=== PATIENT | male | born 1955 | race Caucasian/White ===

== ENCOUNTER 2019-02-12 09:42 | Day surgery (SDC) | payer OTHER ==
[2019-02-10 10:41] VITALS: BMI 31.5
--- NOTE | 2019-02-12 08:32 | P.GSHP ---
History of Present Illness H&P Date: 02/12/19 CHIEF COMPLAINT: Colon screen HISTORY OF PRESENT ILLNESS: The patient is a 63-year-old male who presents for colon screen. Lower endoscopy was offered for further evaluation and management. PAST MEDICAL HISTORY: Please see list. PAST SURGICAL HISTORY: Please see list. MEDICATIONS: Please see list. ALLERGIES: Please see list. SOCIAL HISTORY: No illicit drug use FAMILY HISTORY: No reports of Crohn disease or ulcerative colitis. REVIEW OF ORGAN SYSTEMS: CONSTITUTIONAL: No reports of fevers or chills. PHYSICAL EXAM: VITAL SIGNS: Stable GENERAL: Well-developed pleasant in no acute distress. HEENT: No scleral icterus. Extraocular movements grossly intact. Moist buccal mucosa. NECK: Supple without lymphadenopathy. CHEST: Unlabored respirations. Equal bilateral excursions. CARDIOVASCULAR: Regular rate and rhythm. Distal 2+ pulses. ABDOMEN: Soft, nontender, nondistended. MUSCULOSKELETAL: No clubbing, cyanosis, or edema. ASSESSMENT: 1. Colon screen. PLAN: 1. Recommend proceeding with a lower endoscopy Past Medical History Past Medical History: Coronary Artery Disease (CAD), Cancer, Hyperlipidemia, Hypertension, Thyroid Disorder Additional Past Medical History / Comment(s): HX OF LYMPHOMA 1984, radiation tx 1984, STATES BOWEL OBSTRUCTION X3, tinnitus History of Any Multi-Drug Resistant Organisms: None Reported Past Surgical History: Bowel Resection, Heart Catheterization With Stent Additional Past Surgical History / Comment(s): LEFT AXILLARY LYMPH NODES REMOVED, SPLEENECTOMY, PARTIAL LIVER REMOVAL, Past Anesthesia/Blood Transfusion Reactions: No Reported Reaction Date of Last Stent Placement:: 2014 Past Psychological History: No Psychological Hx Reported Smoking Status: Former smoker Past Alcohol Use History: Occasional Additional Past Alcohol Use History / Comment(s): quit smoking 1979, smoked about 10 yrs 1ppd Past Drug Use History: Marijuana Additional Drug Use History / Comment(s): instructed to hold 24 hrs prior to procedure - Past Family History Mother Family Medical History: Cancer Medications and Allergies Home Medications Medication Instructions Recorded Confirmed Type Aspirin 81 mg PO DAILY 04/30/14 02/10/19 History Multivitamins, Thera [Multivitamin] 1 tab PO DAILY 04/30/14 02/10/19 History Atorvastatin [Lipitor] 80 mg PO DAILY 02/10/19 02/10/19 History Cholecalciferol (Vitamin D3) 2,000 unit PO DAILY 02/10/19 02/10/19 History [Vitamin D3] Levothyroxine Sodium [Synthroid] 112 mcg PO DAILY 02/10/19 02/10/19 History Meloxicam [Mobic] 7.5 mg PO DAILY 02/10/19 02/10/19 History Metoprolol Succinate (ER) [Toprol 25 mg PO DAILY 02/10/19 02/10/19 History Xl] [place]-3 Fatty Acids/Fish Oil [Fish 1 each PO DAILY 02/10/19 02/10/19 History Oil 1,000 mg Softgel] Omeprazole [PriLOSEC] 20 mg PO DAILY 02/10/19 02/10/19 History Zinc 50 mg PO DAILY 02/10/19 02/10/19 History Allergies Allergy/AdvReac Type Severity Reaction Status Date / Time No Known Allergies Allergy Verified 02/10/19 10:32
[~2019-02-12 09:42] MED LIST: LACTATED RINGERS 1,000 ML IV SCH; LIDOCAINE 1% 20 ML VIAL (10MG/ML) FOR IV START INTRADERMA PRN
[2019-02-12 10:30] VITALS: TEMP 97.4
[2019-02-12] MEDS ORDERED: PROPOFOL 10 MG/ML 20 ML VIAL IV ONE (11:22)
[2019-02-12 11:50] VITALS: RESP 16
--- NOTE | 2019-02-12 11:50 | P.PCN ---
Date of Procedure: 02/12/19 Description of Procedure: PREOPERATIVE DIAGNOSIS: Personal history of colon polyp Colonoscopy screening POSTOPERATIVE DIAGNOSIS: Personal history of colon polyp Colonoscopy screening Severe sigmoid diverticulosis External hemorrhoids OPERATION: Colonoscopy to the ileocecal valve and appendiceal orifice. Colonoscopy with cold forceps biopsy. SURGEON: Meme Drummond MD. ANESTHESIA: MAC. INDICATIONS: The patient is a 63-year-old male who presents for colonoscopy screening. Last colonoscopy 3 years ago. Benefits and risks were described and informed consent was obtained. DESCRIPTION OF PROCEDURE: The patient had undergone Suprep. He had been brought into the operating room and laid in the left lateral decubitus position. After adequate intravenous sedation, the rectum was examined with 2% lidocaine jelly. Prostatic fossa was unremarkable External hemorrhoids were encountered. The rectal tone was within normal limits. No lesions were palpated in the rectal vault. An Olympus colonoscope was advanced until the ileocecal valve and appendiceal orifice were clearly viewed. The prep was excellent. Moderate sigmoid diverticulosis was encountered. Colonic polyps were found and cold forcep biopsy. No evidence of focal colitis was found. Retroflexion of the scope demonstrated grade 1 internal hemorrhoids without active bleeding or inflammation. The colon was desufflated. The patient had tolerated the procedure well. Withdrawal time was over 6 minutes. FINDINGS: Aronchick preparation quality scale 1 (1-5) Internal hemorrhoids, grade 1 External hemorrhoids, grade 2. No arteriovenous malformations. Moderate sigmoid diverticulosis Removal of 1 polyps: - Cold forceps biopsy at proximal transverse colon, 4 mm polyp. No focal colitis. RECOMMENDATIONS: Repeat colonoscopy 5 years, 2023 Plan - Discharge Summary Discharge Rx Participant: No New Discharge Prescriptions: No Action Multivitamins, Thera [Multivitamin] 1 tab PO DAILY Aspirin 81 mg PO DAILY Metoprolol Succinate (ER) [Toprol Xl] 25 mg PO DAILY Levothyroxine Sodium [Synthroid] 112 mcg PO DAILY Atorvastatin [Lipitor] 80 mg PO DAILY Omeprazole [PriLOSEC] 20 mg PO DAILY Meloxicam [Mobic] 7.5 mg PO DAILY Zinc 50 mg PO DAILY [place]-3 Fatty Acids/Fish Oil [Fish Oil 1,000 mg Softgel] 1 each PO DAILY Cholecalciferol (Vitamin D3) [Vitamin D3] 2,000 unit PO DAILY Discharge Medication List Aspirin 81 mg PO DAILY 04/30/14 [History] Multivitamins, Thera [Multivitamin] 1 tab PO DAILY 04/30/14 [History] Atorvastatin [Lipitor] 80 mg PO DAILY 02/10/19 [History] Cholecalciferol (Vitamin D3) [Vitamin D3] 2,000 unit PO DAILY 02/10/19 [History] Levothyroxine Sodium [Synthroid] 112 mcg PO DAILY 02/10/19 [History] Meloxicam [Mobic] 7.5 mg PO DAILY 02/10/19 [History] Metoprolol Succinate (ER) [Toprol Xl] 25 mg PO DAILY 02/10/19 [History] [place]-3 Fatty Acids/Fish Oil [Fish Oil 1,000 mg Softgel] 1 each PO DAILY 02/10/19 [History] Omeprazole [PriLOSEC] 20 mg PO DAILY 02/10/19 [History] Zinc 50 mg PO DAILY 02/10/19 [History] Follow up Appointment(s)/Referral(s): Meme Drummond MD [STAFF PHYSICIAN] - As Needed Patient Instructions/Handouts: Diverticulosis (DC), Colorectal Polyps (GEN), Diverticulosis Diet (GEN) Activity/Diet/Wound Care/Special Instructions: Repeat colonoscopy 5 years, 2023 Discharge Disposition: HOME SELF-CARE
[2019-02-12 12:15] VITALS: BP 136/72; PULSE 89
== END 2019-02-12 12:27 | disposition home or self-care (01) ==
LOC: ORWHC2ENDO 09:42
PROVIDERS: ATTEND Surgery Plastic and Reconstructive Surgery
DX: Z12.11 Encounter for screening for malignant neoplasm of colon (principal); K57.30 Diverticulosis of large intestine without perforation or abscess without bleeding; K64.0 First degree hemorrhoids; K64.1 Second degree hemorrhoids; K63.5 Polyp of colon; K21.9 Gastro-esophageal reflux disease without esophagitis; Z86.010 Personal history of colon polyps; I25.10 Atherosclerotic heart disease of native coronary artery without angina pectoris; I10 Essential (primary) hypertension; E78.5 Hyperlipidemia, unspecified; Z85.72 Personal history of non-Hodgkin lymphomas; Z92.3 Personal history of irradiation; H93.19 Tinnitus, unspecified ear; Z90.49 Acquired absence of other specified parts of digestive tract; Z95.5 Presence of coronary angioplasty implant and graft; Z90.81 Acquired absence of spleen; Z87.891 Personal history of nicotine dependence; Z79.82 Long term (current) use of aspirin; Z79.890 Hormone replacement therapy; Z79.899 Other long term (current) drug therapy; E07.9 Disorder of thyroid, unspecified
CPT/HCPCS: 88305; 45380; J2704

== ENCOUNTER 2024-05-21 07:38 | Day surgery (SDC) | payer MEDICARE, OTHER ==
--- NOTE | 2024-05-21 07:58 | P.GSHP ---
History of Present Illness H&P Date: 05/21/24 CHIEF COMPLAINT: Colon screen HISTORY OF PRESENT ILLNESS: The patient is a 69-year-old male who presents for colon screen. Lower endoscopy was offered for further evaluation and management. PAST MEDICAL HISTORY: Please see list. PAST SURGICAL HISTORY: Please see list. MEDICATIONS: Please see list. ALLERGIES: Please see list. SOCIAL HISTORY: No illicit drug use FAMILY HISTORY: No reports of Crohn disease or ulcerative colitis. REVIEW OF ORGAN SYSTEMS: CONSTITUTIONAL: No reports of fevers or chills. PHYSICAL EXAM: VITAL SIGNS: Stable GENERAL: Well-developed pleasant in no acute distress. HEENT: No scleral icterus. Extraocular movements grossly intact. Moist buccal mucosa. NECK: Supple without lymphadenopathy. CHEST: Unlabored respirations. Equal bilateral excursions. CARDIOVASCULAR: Regular rate and rhythm. Distal 2+ pulses. ABDOMEN: Soft, nontender, nondistended. MUSCULOSKELETAL: No clubbing, cyanosis, or edema. ASSESSMENT: 1. Colon screen. PLAN: 1. Recommend proceeding with a lower endoscopy Past Medical History Past Medical History: Coronary Artery Disease (CAD), Cancer, Hyperlipidemia, Hypertension, Thyroid Disorder Additional Past Medical History / Comment(s): HX OF LYMPHOMA 1984, radiation tx 1984, STATES BOWEL OBSTRUCTION X3, tinnitus History of Any Multi-Drug Resistant Organisms: None Reported Past Surgical History: Bowel Resection, Heart Catheterization With Stent, Pacemaker Additional Past Surgical History / Comment(s): LEFT AXILLARY LYMPH NODES REMOVED, SPLEENECTOMY, PARTIAL LIVER REMOVAL, aortic valve replacement, esau cataract removal, Past Anesthesia/Blood Transfusion Reactions: No Reported Reaction Date of Last Stent Placement:: 2014 Type of Cardiac Device: Permanent Pacemaker Device Placement Date:: 11/2023 Smoking Status: Former smoker - Past Family History Mother Family Medical History: Cancer Medications and Allergies Home Medications Medication Instructions Recorded Confirmed Type Aspirin 81 mg PO HS 04/30/14 05/19/24 History Multivitamins, Thera [Multivitamin] 1 tab PO DAILY 04/30/14 05/19/24 History Cholecalciferol (Vitamin D3) 2,000 unit PO DAILY 02/10/19 05/19/24 History [Vitamin D3] Levothyroxine Sodium [Synthroid] 150 mcg PO DAILY 02/10/19 05/19/24 History Meloxicam [Mobic] 7.5 mg PO DAILY 02/10/19 05/19/24 History Metoprolol Succinate (ER) [Toprol 25 mg PO DAILY 02/10/19 05/19/24 History Xl] [place]-3 Fatty Acids/Fish Oil [Fish 1 each PO DAILY 02/10/19 05/19/24 History Oil 1,000 mg Softgel] ALPRAZolam [Xanax] 0.25 mg PO HS PRN 05/19/24 05/19/24 History Amoxicillin 500 mg PO Q12HR 05/19/24 05/19/24 History Amoxicillin 500 mg PO Q8H 05/19/24 05/19/24 History Citalopram Hydrobromide 10 mg PO DAILY 05/19/24 05/19/24 History [Citalopram HBr] Ezetimibe [Zetia] 10 mg PO HS 05/19/24 05/19/24 History Furosemide [Lasix] 20 mg PO DAILY 05/19/24 05/19/24 History Magnesium (Unk) 1 tab PO DAILY 05/19/24 05/19/24 History Potassium Chloride [K-Tab ER] 20 meq PO DAILY 05/19/24 05/19/24 History Rosuvastatin Calcium 40 mg PO HS 05/19/24 05/19/24 History Super C (Unk) 1 dose PO DAILY 05/19/24 05/19/24 History Tamsulosin [Flomax] 0.4 mg PO DAILY 05/19/24 05/19/24 History traMADol HCL 50 mg PO Q6H 05/19/24 05/19/24 History Allergies Allergy/AdvReac Type Severity Reaction Status Date / Time No Known Allergies Allergy Verified 05/19/24 12:03
[2024-05-21] MEDS: IV FLUID CONTINUATION 1,000 ML IV ONE (08:01)
[2024-05-21 08:04] VITALS: TEMP 97.6
[2024-05-21] MEDS: LACTATED RINGERS 1,000 ML IV SCH (08:22)
[2024-05-21] MEDS ORDERED: PROPOFOL 10 MG/ML 20 ML VIAL IV ONE (08:32)
[2024-05-21 09:27] VITALS: BP 112/70; PULSE 92; RESP 16
--- NOTE | 2024-05-21 09:50 | P.PCN ---
Date of Procedure: 05/21/24 Description of Procedure: PREOPERATIVE DIAGNOSIS: Personal history of colon polyp Colonoscopy screening. POSTOPERATIVE DIAGNOSIS: Colonoscopy screening. Diverticulosis, severe sigmoid OPERATION: Colonoscopy to the cecum, ileocecal valve and appendiceal orifice. SURGEON: Meme Drummond MD. ANESTHESIA: MAC. INDICATIONS: The patient is a 69-year-old male who presents for colonoscopy screening. Last colonoscopy 5 years. Benefits and risks were described and informed consent was obtained. DESCRIPTION OF PROCEDURE: The patient had undergone GoLytely prep. The patient had been brought into the operating room and laid in the left lateral decubitus position. After adequate intravenous sedation, the rectum was examined with 2% lidocaine jelly. No external hemorrhoids were encountered. Prostate fossa unremarkable. The rectal tone was within normal limits. No lesions were palpated in the rectal vault. An Olympus colonoscope was advanced until the cecum, ileocecal valve and appendiceal orifice were clearly viewed. The prep was excellent. Scattered diverticulosis was encountered. No colonic polyps were found. No evidence of focal colitis was found. Retroflexion of the scope demonstrated grade 1 internal hemorrhoids without active bleeding or inflammation. The colon was desufflated. The patient had tolerated the procedure well. Withdrawal time was over 6 minutes. FINDINGS: Aronchick preparation quality scale 1 (1-5) Internal hemorrhoids, grade 1 No external prolapsed hemorrhoids. No arteriovenous malformations. No adenomatous polyps. No focal colitis. Severe sigmoid diverticulosis with highly redundant colon RECOMMENDATIONS: Lower endoscopy in 5 years2029. Plan - Discharge Summary Discharge Rx Participant: No New Discharge Prescriptions: Continue Multivitamins, Thera [Multivitamin (formulary)] 1 tab PO DAILY Aspirin 81 mg PO HS Metoprolol Succinate (ER) [Toprol XL] 25 mg PO DAILY Levothyroxine Sodium [Synthroid] 150 mcg PO DAILY Meloxicam [Mobic] 7.5 mg PO DAILY [place]-3 Fatty Acids/Fish Oil [Fish Oil 1,000 mg Softgel] 1 each PO DAILY Cholecalciferol (Vitamin D3) [Vitamin D3] 2,000 unit PO DAILY ALPRAZolam [Xanax] 0.25 mg PO HS PRN PRN Reason: Insomnia Super C (Unk) 1 dose PO DAILY Potassium Chloride [K-Tab ER] 20 meq PO DAILY Magnesium (Unk) 1 tab PO DAILY Furosemide [Lasix] 20 mg PO DAILY Amoxicillin 500 mg PO Q12HR Amoxicillin 500 mg PO Q8H Ezetimibe [Zetia] 10 mg PO HS traMADol HCL 50 mg PO Q6H Tamsulosin [Flomax] 0.4 mg PO DAILY Rosuvastatin Calcium 40 mg PO HS Citalopram Hydrobromide [Citalopram HBr] 10 mg PO DAILY Discharge Medication List Aspirin 81 mg PO HS 04/30/14 [History] Multivitamins, Thera [Multivitamin (formulary)] 1 tab PO DAILY 04/30/14 [History] Cholecalciferol (Vitamin D3) [Vitamin D3] 2,000 unit PO DAILY 02/10/19 [History] Levothyroxine Sodium [Synthroid] 150 mcg PO DAILY 02/10/19 [History] Meloxicam [Mobic] 7.5 mg PO DAILY 02/10/19 [History] Metoprolol Succinate (ER) [Toprol XL] 25 mg PO DAILY 02/10/19 [History] [place]-3 Fatty Acids/Fish Oil [Fish Oil 1,000 mg Softgel] 1 each PO DAILY 02/10/19 [History] ALPRAZolam [Xanax] 0.25 mg PO HS PRN 05/19/24 [History] Amoxicillin 500 mg PO Q12HR 05/19/24 [History] Amoxicillin 500 mg PO Q8H 05/19/24 [History] Citalopram Hydrobromide [Citalopram HBr] 10 mg PO DAILY 05/19/24 [History] Ezetimibe [Zetia] 10 mg PO HS 05/19/24 [History] Furosemide [Lasix] 20 mg PO DAILY 05/19/24 [History] Magnesium (Unk) 1 tab PO DAILY 05/19/24 [History] Potassium Chloride [K-Tab ER] 20 meq PO DAILY 05/19/24 [History] Rosuvastatin Calcium 40 mg PO HS 05/19/24 [History] Super C (Unk) 1 dose PO DAILY 05/19/24 [History] Tamsulosin [Flomax] 0.4 mg PO DAILY 05/19/24 [History] traMADol HCL 50 mg PO Q6H 05/19/24 [History] Follow up Appointment(s)/Referral(s): Meme Drummond MD [STAFF PHYSICIAN] - As Needed Patient Instructions/Handouts: Diverticulosis Diet (GEN) Activity/Diet/Wound Care/Special Instructions: Repeat colonoscopy 5 years, 2030 Discharge Disposition: HOME SELF-CARE
== END 2024-05-21 10:30 | disposition home or self-care (01) ==
LOC: ORWHC2ENDO 07:38
PROVIDERS: ATTEND Surgery Plastic and Reconstructive Surgery
DX: Z12.11 Encounter for screening for malignant neoplasm of colon (principal); K57.30 Diverticulosis of large intestine without perforation or abscess without bleeding; K64.0 First degree hemorrhoids; K63.89 Other specified diseases of intestine; Z86.0100 Personal history of colon polyps, unspecified; I10 Essential (primary) hypertension; I25.10 Atherosclerotic heart disease of native coronary artery without angina pectoris; E78.5 Hyperlipidemia, unspecified; F41.9 Anxiety disorder, unspecified; F32.A Depression, unspecified; E07.9 Disorder of thyroid, unspecified; Z79.890 Hormone replacement therapy; Z79.899 Other long term (current) drug therapy; Z79.82 Long term (current) use of aspirin; Z85.72 Personal history of non-Hodgkin lymphomas; Z92.3 Personal history of irradiation; Z87.891 Personal history of nicotine dependence; Z98.890 Other specified postprocedural states; Z98.41 Cataract extraction status, right eye; Z98.42 Cataract extraction status, left eye; Z95.2 Presence of prosthetic heart valve; Z95.5 Presence of coronary angioplasty implant and graft; Z95.0 Presence of cardiac pacemaker
CPT/HCPCS: J2704; G0105; 45378

== ENCOUNTER → 2024-06-16 | Outpatient (CLI) | payer MEDICARE ==
[2024-06-16 15:20] LABS: Basophils # (A) 0.11 X 10*3/uL (0.00-0.10); Eosinophils % (A) 0.9 %; HCT 46.6 % (39.6-50.0); Lymphocytes % (A) 19.2 %; MCH 29.8 pg (27.0-32.0); MCHC 32.2 g/dL (32.0-37.0); MCV 92.5 FL (80.0-97.0); Mean Platelet Volume 12.3 FL (9.5-12.2); Monocytes # (A) 0.97 X 10*3/uL (0.20-1.00); Monocytes % (A) 8.9 %; NRBC Per 100 WBC 0 X 10*3/uL (0.00-0.01); Neutrophils # (A) 7.59 X 10*3/uL (1.80-7.70); Neutrophils % (A) 69.5 %; Platelet Count 203 X 10*3/uL (140-440); RBC 5.04 X 10*6/uL (4.40-5.60); RDW 14.2 % (11.5-14.5); WBC 10.92 X 10*3/uL (4.50-10.00)
[2024-06-16 16:41] LABS: ALT 18 U/L (10-49); AST 29 U/L (14-35); Albumin 4.8 g/dL (3.8-4.9); Albumin/Globulin Ratio 2.29 Ratio (1.60-3.17); Alkaline Phosphatase 65 U/L (41-126); Blood Urea Nitrogen 32.5 mg/dL (9.0-27.0); Calcium 10.2 mg/dL (8.7-10.3); Carbon Dioxide 22.6 mmol/L (21.6-31.8); Chloride 103 mmol/L (96-109); Globulin 2.1 g/dL (1.6-3.3); Glucose 107 mg/dL (70-110); Potassium 5.4 mmol/L (3.5-5.5); Sodium 140 mmol/L (135-145); Total Bilirubin 0.3 mg/dL (0.3-1.2); Total Protein 6.9 g/dL (6.2-8.2)
== END | disposition home or self-care (01) ==
LOC: LABWHC1 09:59
PROVIDERS: ATTEND Surgery Plastic and Reconstructive Surgery
DX: K57.92 Diverticulitis of intestine, part unspecified, without perforation or abscess without bleeding (principal)
CPT/HCPCS: 36415; 80053; 85025; 86850; 86900; 86901

== ENCOUNTER 2024-06-20 07:30 | Inpatient (IN) | payer MEDICARE ==
--- NOTE | 2024-06-19 08:53 | P.PN ---
Progress Note - Text Progress Note Date: 06/19/24 Called patient at home regarding mildly elevated potassium level. Patient asked to stop his potassium pill today. Patient reports he took his potassium pill. He is asked to drink extra 2 more cups of water to stay hydrated. Also reinforcement of taking mechanical bowel prep at 1:00 2:00 and 11:00 in the afternoon in the evening described.
[~2024-06-20 07:30] MED LIST changes: -LACTATED RINGERS 1,000 ML IV SCH; -LIDOCAINE 1% 20 ML VIAL (10MG/ML) FOR IV START INTRADERMA PRN; +metroNIDAZOLE-NS PMX 500 MG in SALINE 1 100ML.BAG IVPB PRN
--- NOTE | 2024-06-20 07:52 | P.GSHP ---
History of Present Illness H&P Date: 06/20/24 CHIEF COMPLAINT: Sigmoid diverticulosis with obstruction HISTORY OF PRESENT ILLNESS: The patient is a 69-year-old male who presents with worsening constipation and pre-existing history of diverticulosis with now progressive large bowel obstruction for over 2 months. He reports intermittent gas bloat. Additionally, patient reports trouble with urination due to prostate disorder and has not seen urologist. Patient has pre-existing heart disease and has received cardiac risk assessment. He presents for surgical options, sigmoid colectomy. PAST MEDICAL HISTORY: Please see list. PAST SURGICAL HISTORY: Please see list. MEDICATIONS: Please see list. ALLERGIES: Please see list. SOCIAL HISTORY: No illicit drug use FAMILY HISTORY: No reports of Crohn disease or ulcerative colitis. REVIEW OF ORGAN SYSTEMS: CONSTITUTIONAL: Denies any fever or chills. HEENT: Denies any trouble with vision or nosebleeds. No difficulty swallowing. LYMPHATIC: The patient denies any lumps and bumps around the neck. ENDOCRINE: Denies any thyroid disorders. Has blood sugar glucose intolerance. RESPIRATORY: Denies pneumonia. Denies any troubles with breathing or dyspnea on exertion. CARDIOVASCULAR: Has hypertensive heart disease with congestive heart failure GASTROINTESTINAL: Has chronic diverticulitis. GENITOURINARY: Has increased urinary frequency. Has prostate disorder. Has hyperlipidemia. MUSCULOSKELETAL: Has back pain, stiffness, joint arthritis. NEUROLOGIC: Denies any numbness or tingling along the distal extremities. No seizure disorders or headaches. PSYCHIATRIC: Denies depression or suidical ideation. HEMATOLOGIC: Denies any abnormal bleeding or bruising. PHYSICAL EXAM: VITAL SIGNS: Stable GENERAL: Well-developed pleasant in no acute distress. HEENT: No scleral icterus. Extraocular movements grossly intact. Moist buccal mucosa. NECK: Supple without lymphadenopathy. CHEST: Unlabored respirations. Equal bilateral excursions. CARDIOVASCULAR: Regular rate and rhythm. Distal 2+ pulses. ABDOMEN: Soft, nontender, nondistended. MUSCULOSKELETAL: No clubbing, cyanosis, or edema. NERUO: Cranial nerves 2-12 grossly intact. PSYCH: Alert and oriented to person place and time. LABS: Recent labs demonstrates hyperkalemia. STUDIES: Outside CT scan dependently reviewed demonstrates moderate sigmoid diverticulosis with tortuosity from April 2024. REPORTS: Colonoscopy report demonstrates highly redundant sigmoid diverticulosis with partial obstruction ASSESSMENT: 1. Sigmoid diverticulosis with bowel obstruction 2. Hypertensive heart disease with congestive heart failure 3. Pre-existing obstructive uropathy PLAN: 1. Benefits and risks of surgical robotic sigmoid resection was reviewed in detail. Robotic-assisted approach low anterior resection/sigmoid colectomy was also described. 2. Enhanced colon recovery program. 3. DVT prophylaxis. 4. Antibiotic prophylaxis. 5. Inpatient hospitalization greater than 2 nights. 6. Due to abnormal labs, repeat CBC, CMP on day of procedure 7. Due to risk of dehydration, normal saline bolus and preop advised 8. Patient is elevated risk due to multiple comorbidities 9. Recommendation abdominal wall block preferred over epidural due to patient's pre-existing obstructive uropathy Past Medical History Past Medical History: Coronary Artery Disease (CAD), Cancer, Hyperlipidemia, Hypertension, Thyroid Disorder Additional Past Medical History / Comment(s): HX OF LYMPHOMA 1984, radiation tx 1984, STATES BOWEL OBSTRUCTION X3, tinnitus, hypothyrpoidism, Lt. hip pain, diverticulitis History of Any Multi-Drug Resistant Organisms: None Reported Past Surgical History: Bowel Resection, Cardiac Valve Replacement, Heart Catheterization With Stent, Pacemaker Additional Past Surgical History / Comment(s): LEFT AXILLARY LYMPH NODES REMOVED, SPLENECTOMY, PARTIAL LIVER REMOVAL, aortic valve replacement, esau cataract removal Past Anesthesia/Blood Transfusion Reactions: No Reported Reaction Date of Last Stent Placement:: 2014 Type of Cardiac Device: Permanent Pacemaker Device Placement Date:: 11/2023 Smoking Status: Former smoker - Past Family History Mother Family Medical History: Cancer Additional Family Medical History / Comment(s): metastatic cancer. maternal grandfather - colon cancer Medications and Allergies Home Medications Medication Instructions Recorded Confirmed Type RX: Aspirin 81 mg PO HS 04/30/14 06/18/24 History RX: Multivitamins, Thera 1 tab PO DAILY 04/30/14 06/18/24 History [Multivitamin (formulary)] RX: Cholecalciferol (Vitamin D3) 2,000 unit PO DAILY 02/10/19 06/18/24 History [Vitamin D3] RX: Levothyroxine Sodium 150 mcg PO DAILY 02/10/19 06/18/24 History [Synthroid] RX: Meloxicam [Mobic] 15 mg PO DAILY 02/10/19 06/18/24 History RX: Metoprolol Succinate (ER) 25 mg PO DAILY 02/10/19 06/18/24 History [Toprol XL] RX: [place]-3 Fatty Acids/Fish Oil 1 each PO DAILY 02/10/19 06/18/24 History [Fish Oil 1,000 mg Softgel] Magnesium (Unk) 1 tab PO DAILY 05/19/24 06/18/24 History RX: ALPRAZolam [Xanax] 0.25 mg PO HS PRN 05/19/24 06/18/24 History RX: Citalopram Hydrobromide 10 mg PO DAILY 05/19/24 06/18/24 History [Citalopram HBr] RX: Ezetimibe [Zetia] 10 mg PO HS 05/19/24 06/18/24 History RX: Furosemide [Lasix] 20 mg PO DAILY 05/19/24 06/18/24 History RX: Potassium Chloride [K-Tab ER] 20 meq PO DAILY 05/19/24 06/18/24 History RX: Rosuvastatin Calcium 40 mg PO HS 05/19/24 06/18/24 History RX: Tamsulosin [Flomax] 0.4 mg PO DAILY 05/19/24 06/18/24 History RX: traMADol HCL 50 mg PO Q6H 05/19/24 06/18/24 History Super C (Unk) 1 dose PO DAILY 05/19/24 06/18/24 History Allergies Allergy/AdvReac Type Severity Reaction Status Date / Time No Known Allergies Allergy Verified 06/18/24 10:41
[2024-06-20] MEDS: LACTATED RINGERS 1,000 ML IV SCH (10:50)
[2024-06-20] MEDS: ACETAMINOPHEN TAB 500 MG TAB PO PRN (10:50)
[2024-06-20] MEDS: ALVIMOPAN 12 MG CAPSULE PO PRN (10:50)
[2024-06-20] MEDS: ONDANSETRON 4 MG/2 ML VIAL IVP PRN (10:50)
[2024-06-20] MEDS: DEXAMETHASONE SOD PHOSPHATE 4 MG/ML 1 ML VIAL IVP STA (10:55)
[2024-06-20 11:12] LABS: Basophils # (A) 0.1 k/uL (0-0.2); Basophils % (A) 1 %; Eosinophils # (A) 0.1 k/uL (0-0.7); Eosinophils % (A) 1 %; HCT 44.4 % (39.0-53.0); HGB 14.5 gm/dL (13.0-17.5); Lymphocytes # (A) 2.3 k/uL (1.0-4.8); Lymphocytes % (A) 27 %; MCH 30.1 pg (25.0-35.0); MCHC 32.6 g/dL (31.0-37.0); MCV 92.4 fL (80.0-100.0); Mean Platelet Volume 10.4; Monocytes # (A) 0.6 k/uL (0-1.0); Monocytes % (A) 7 %; Neutrophils # (A) 5.2 k/uL (1.3-7.7); Neutrophils % (A) 61 %; Platelet Count 179 k/uL (150-450); RDW 13.9 % (11.5-15.5); WBC 8.5 k/uL (3.8-10.6)
[2024-06-20 11:14] LABS: ALT 22 U/L (4-49); AST 36 U/L (17-59); African American GFR (CKD) >90 (>60 ml/min/1.73 sqM); Albumin 4.6 g/dL (3.5-5.0); Alkaline Phosphatase 54 U/L (38-126); Anion Gap 9 mmol/L; Blood Urea Nitrogen 17 mg/dL (9-20); Calcium 9.9 mg/dL (8.4-10.2); Carbon Dioxide 23 mmol/L (22-30); Chloride 102 mmol/L (98-107); Glucose 91 mg/dL (74-99); Non-African American GFR(CKD) >90 (>60 ml/min/1.73 sqM); Potassium 4.4 mmol/L (3.5-5.1); Sodium 134 mmol/L (137-145); Total Bilirubin 0.6 mg/dL (0.2-1.3); Total Protein 6.8 g/dL (6.3-8.2)
[2024-06-20] MEDS: IV FLUID CONTINUATION 1,000 ML IV ONE ×2 (11:14→12:24)
--- NOTE | 2024-06-20 11:55 | P.HPADDEND ---
H&P Addendum H&P Addendum Date: 06/20/24 Repeat labs demonstrate normalized leukocytosis including hyperkalemia. Patient does complain of troubles with urination. Will consult urology while inpatient. Continue Glass catheter after surgery. Additionally, patient reports hip pain. Recommend abdominal wall block and minimize use of narcotics.
[2024-06-20] MEDS: SODIUM CHLORIDE 0.9% 1,000 ML IV SCH (12:01)
[2024-06-20] MEDS: TAMSULOSIN 0.4 MG CAP.ER.24H PO STA (13:47)
[2024-06-20] MEDS: MIDAZOLAM 2 MG/2 ML VIAL IV PRN (13:55)
--- NOTE | 2024-06-20 14:05 | P.ANPRN ---
Procedure Note - Anesthesia - Nerve Block Performed Bilateral Erector Spinae Single Time Out Performed: Yes ([id number]) Date of Procedure: 06/20/24 Procedure Start Time: 13:55 Procedure Stop Time: 14:03 Location of Patient: PreOp Indication: Acute Post-Operative Pain, Requested by Surgeon Sedation Type: Sedate with meaningful contact maintained Preparation: Sterile Prep Position: Prone Catheter: None Needle Types: [place]unk Needle Gauge: 21 Ultrasound used to visualize needle placement: Yes Ultrasound used to observe medication spread: Yes Injectate: 0.5% Ropivacaine (see comment for volume) (21 mL of block solution injected on each side. The block solution containing 10 mL of 0.5% ropivacaine mixed with 10 mL of preservative-free normal saline, and 4 mg of dexamethasone) Blood Aspirated: No Pain Paresthesia on Injection Noted: No Resistance on Injection: Normal Image Stored and Saved: Yes Events: Uneventful and Well Tolerated
[2024-06-20] MEDS: HEPARIN SODIUM,PORCINE 5,000 UNIT/ML 1 ML VIAL SQ PRN (14:10)
[2024-06-20] MEDS ORDERED: SODIUM CHLORIDE 0.9% (PF) 10 ML VIAL ONE (16:03)
[2024-06-20] MEDS ORDERED: PHENYLEPHRINE-0.9% NACL SYG 1,000 MCG/10 ML SYRINGE ONE (16:03)
[2024-06-20] MEDS ORDERED: ROPIVACAINE 5 MG/ML 30 ML VIAL ONE (16:03)
[2024-06-20] MEDS ORDERED: fentaNYL (PF) 50 MCG/ML 2 ML AMP ONE (16:03)
[2024-06-20] MEDS ORDERED: ACETAMINOPHEN IV (For NPO) 1,000 MG/100 ML VIAL ONE (16:03)
[2024-06-20] MEDS ORDERED: ROCURONIUM 10 MG/ML (5 ML VIAL) IV ONE (16:03)
[2024-06-20] MEDS ORDERED: DEXAMETHASONE SOD PHOSPHATE 4 MG/ML 1 ML VIAL ONE (16:03)
[2024-06-20] MEDS ORDERED: LIDOCAINE 1% INJ 10MG/ML (20 ML MDV) ONE (16:03)
[2024-06-20] MEDS ORDERED: PROPOFOL 10 MG/ML 20 ML VIAL IV ONE (16:03)
[2024-06-20] MEDS ORDERED: KETAMINE HCL IN 0.9 % NACL 50 MG/5 ML SYRINGE ONE (16:03)
[2024-06-20] MEDS ORDERED: NEOSTIGMINE 1 MG/ML 10 ML VIAL ONE (16:03)
[2024-06-20] MEDS ORDERED: GLYCOPYRROLATE 0.2 MG/ML 2 ML VIAL ONE (16:03)
[2024-06-20] MEDS ORDERED: HYDROmorphone (PF) 1 MG/ML ONE (16:03)
[2024-06-20] MEDS ORDERED: MIDAZOLAM 2 MG/2 ML VIAL ONE (16:03)
[2024-06-20] MEDS ORDERED: NALOXONE 0.4 MG/ML 1 ML VIAL IV PRN ×2 (16:27→21:31)
[2024-06-20] MEDS ORDERED: ONDANSETRON 4 MG/2 ML VIAL IVP PRN (16:27)
[2024-06-20] MEDS: LIDOCAINE 1%-EPI 1:100,000 20 ML VIAL SQ ONE (16:51)
[2024-06-20] MEDS: LACTATED RINGERS 1,000 ML IV ONE (16:53)
[2024-06-20] MEDS ORDERED: METOCLOPRAMIDE 5 MG/ML 2 ML VIAL IVP PRN (21:33)
[2024-06-20] MEDS: HYDROmorphone 0.5 MG/0.5 ML SYRINGE IVP PRN (21:35)
--- NOTE | 2024-06-20 21:40 | P.OP ---
Date of Procedure: 06/20/24 Description of Procedure: SURGEON: EVELYN OLIVIA MD PREOPERATIVE DIAGNOSES: 1. Sigmoid diverticulitis with partial large bowel obstruction POSTOPERATIVE DIAGNOSES: 1. Sigmoid diverticulitis with partial large bowel obstruction 2. Severe peritoneal adhesions 3. Severe pelvic adhesions 4. Severe small bowel adhesions with partial small bowel obstruction OPERATION: 1. Robotic-assisted daVinci Xi sigmoid colectomy with low anterior resection using 29 mm Ethicon powered stapler. 2. Robotic-assisted daVinci Xi extensive lysis of adhesions over 2.5 hrs 3. Intraoperative colonoscopy for sigmoidoscopy Anesthesia: GETA, local, abdominal wall block Estimated Blood Loss (ml): 100 Pathology: other (Sigmoid diverticulitis) Condition: stable Disposition: floor COMPLICATIONS: None. Operative Findings: 1. Complicated diverticulitis with small bowel obstruction from severe interloop adhesions including large bowel adhesions from prior radiation for lymphoma 2. Anastomosis with EEA stapler 29 mm 3. Extensive lysis of adhesions over 2.5 hours for interloop adhesions, small bowel adhesions, large bowel adhesions, pelvic adhesions 4. Bowel prep Aronchik grade 2 INDICATIONS: The patient is a 69-year-old male who presents with partial large bowel obstruction from diverticulitis. Lower endoscopy was recently performed to exclude neoplasm and identified extensive diverticulitis. Benefits and risks of surgical intervention was described in detail including infection, injury to the ureter, colostomy creation, possibility for additional surgery was discussed at length. Informed consent was obtained. All questions of the patient and family were answered. DESCRIPTION: Earlier the patient had undergone a bowel prep using the enhanced colon recovery program. The patient was transferred to the operating room and placed supine. After general induction, the abdomen was prepped and draped in standard sterile fashion. Ioban was placed along the abdomen to minimize any contamination of skin floor. A Glass catheter was placed. After a timeout protocol was performed, attention was then brought to the left upper quadrant whereby a 0 degree 5 mm laparoscopic trocar entry was performed. The abdominal cavity was entered and insufflated to 15 mmHg pressure, which was tolerated well. Diagnostic laparoscopy confirmed moderately redundant sigmoid colon with adhesion of terminal ileum to the sigmoid colon at the dome of the bladder. The liver surface was unremarkable. Next a robotic 12-mm trocar was placed along the right lateral abdominal wall 20 cm superior from the pelvis. An 8 mm port placed along the upper abdomen. Ports were placed 8 to 10 cm apart from each other including 15-20 cm away from the target anatomy of the left pelvis. The 5-mm port was exchanged for an 8 mm robotic port at the left upper quadrant. A 12 mm robotic trochars placed on the left lateral abdomen. The robot was docked along the right lateral abdomen. The patient was positioned in steep Trendelenburg position at 21. Using atraumatic graspers and vessel sealer, the robotic system was docked and primed as described. Instruments were interchanged by the logistics assistant including scissors, needle armored truck driver, robotic stapler and vessel sealer. The robot stapler was prepared along the right lateral abdominal wall. The stapler 12-mm port was arranged along the right lateral abdominal wall. Next, attention was brought to identify the sigmoid colon. A stay suture using 3- 0 silk was placed along the anterior serosa of the redundant sigmoid colon. The sigmoid mesentery was mobilized using a vessel sealer whereby the descending colon was marked and tagged. Using robot stapler 60 mm green load, the proximal redundant sigmoid colon was divided. The mesentery of the sigmoid colon was mobilized towards the pelvic brim and sacral promontory using a vessel sealer. Dense phlegmon involving the right pelvic wall and distal terminal ileum to the sigmoid colon was identified and divided using vessel sealer including hook cautery and blunt dissection without enterotomy. The phlegmon was adherent to the dome of the bladder with drainage of a abscess involving the sidewall of the small bowel and sigmoid colon. Extensive lysis of adhesions over 1 hour was performed. The sigmoid colon was folded onto itself at least 4 times and was completely lysed of adhesions. A small abscess pocket of 5 mL was drained. The rest of the sigmoid colon mesentery was mobilized using vessel sealer. Additionally, the sigmoid colon was mobilized onto the colon to minimize injury to the ureters. I went to the foot of the bed to inspect the sigmoid colon and rectum to prepare for distal resection. EEA sizers were used with a 29 mm selected. A colonoscope was entered along the rectum to the proximal resection point of the descending colon. The colon portion was desufflated. The distal margin for resection was identified. I went back to the surgeon's console. Circumferential dissection was performed to the sacral promontory for resection. Next, the sigmoid colon was divided using the robotic stapler 60 mm black load along the sacral promontory. Via the proximal segment of the descending colon, a longitudinal colotomy was performed. I re-scrubbed into the case. The robotic arms were undocked. A 29-mm anvil was positioned after placing a 3- 0 silk suture along the anvil correctional officer sergeant. The anvil was entered into the abdomen via the left lateral trocar incision. I went back to the robotic console to navigate the anvil to the proximal stapled end. The proximal stapled end was reopened using hook artery. The anvil was inserted into the open colotomy. The open colotomy was oversewn using 3-0 Vicryl. A green staple load was used to close the colotomy. The shaft of the anvil was exited via the staple line and the anvil correctional officer sergeant was removed after identifying the 3-0 silk. The anvil correctional officer sergeant was removed from the abdominal cavity. I went to the foot of the bed to place the Ethicon powered stapler via the rectum. The anvil and stapler were mated for 1 minute. The doughnuts were intact on both sides and thick. When back to the [facility] to perform a leak test. Normal saline was placed into the pelvis by the logistics assistant. An Olympus colonoscope was advanced beyond the anastomosis which was intact and without leak. The anastomosis was without bleeding and viable. The GI tract was decompressed. This concluded the endoscopic portion of the procedure. The robot was undocked. I re-scrubbed into the case. Irrigant was aspirated from the abdominal cavity with mild bleeding found along the anastomosis. Via the left upper quadrant trocar incision, the sigmoid colon was removed. All sponges were removed from the abdominal cavity. The incision was widened to 2-cm. No contamination had occurred throughout the case. The fascial defect was oversewn using 0 Vicryl and a Haim Pizarro. Due to the pelvic abscess identified, a drain was placed. A round #19 drain was placed anterior to the anastomosis along the pelvis and exited via the left upper abdominal incision. A 2-0 nylon stitch was placed. Next all pneumoperitoneum was evacuated from the abdominal cavity. The 8-mm trocar sites were reapproximated using 4-0 Monocryl in an interrupted subcuticular fashion. Local anesthetic was infiltrated to all wounds for postop analgesia. All incisions were also cleansed with diluted hydrogen peroxide. An Optifoam surgical dressing was placed over the colon extraction site and drain site. A suction bulb was placed along the tubing. Liquid glue was applied to the rest of the skin incisions. The patient had tolerated the procedure well. The patient was extubated successfully. Intraoperative photos were reviewed with the patient's family who were overall pleased with the level of care. The patient was transferred to the postanesthesia care unit in stable condition.
[2024-06-20] MEDS: D5-0.45% NACL WITH KCL 20MEQ/L 1,000 ML IV SCH (22:52)
[2024-06-20] MEDS: fentaNYL PCA 500 MCG/50 ML BAG IV SCH (22:52)
[2024-06-20] MEDS: TAMSULOSIN 0.4 MG CAP.ER.24H PO SCH (23:22)
[2024-06-20] MEDS: SODIUM CHLORIDE 0.9% 1,000 ML IV ONE (23:59)
[2024-06-21] MEDS: traMADol 50 MG TAB PO SCH (00:12)
[2024-06-21] MEDS: ONDANSETRON 4 MG/2 ML VIAL IVP SCH (00:12)
[2024-06-21] MEDS: metroNIDAZOLE-NS PMX 500 MG in SALINE 1 100ML.BAG IVPB SCH (00:13)
[2024-06-21] MEDS: LEVOTHYROXINE 75 MCG TAB PO SCH (07:01)
[2024-06-21 07:26] LABS: African American GFR (CKD) >90 (>60 ml/min/1.73 sqM); Anion Gap 5 mmol/L; Blood Urea Nitrogen 15 mg/dL (9-20); Calcium 8.8 mg/dL (8.4-10.2); Carbon Dioxide 24 mmol/L (22-30); Chloride 103 mmol/L (98-107); Glucose 184 mg/dL (74-99); Non-African American GFR(CKD) >90 (>60 ml/min/1.73 sqM); Potassium 4.4 mmol/L (3.5-5.1); Sodium 132 mmol/L (137-145)
--- NOTE | 2024-06-21 08:35 | P.PN ---
Subjective Progress Note Date: 06/21/24 CHIEF COMPLAINT: Diverticulitis HISTORY OF PRESENT ILLNESS: The patient is a 69-year-old male admitted for large bowel obstruction due to diverticulitis including severe intra-abdominal adhesions with intermittent small bowel obstruction. Patient reports pre- existing troubles with urination with obstructive uropathy. He has not seen urologist in the past. Additionally, patient reports moderate left leg arthritis and difficulty getting out of the bed including chronic lower back pain. He reports mild reflux. He reports tolerable pain control with the abdomen. Most of his pain is back pain and leg pain. ROS: No reports of nausea and vomiting. No bowel movements. No fevers or chills. No new chest pain. No productive sputum PHYSICAL EXAM: VITAL SIGNS: Reviewed CONSTITUTIONAL: Well developed and in no acute distress. EYES: Conjuctivae without sclera icterus. Extraocular movements grossly intact. HEAD, EARS, NOSE, THROAT: Moist buccal mucosa. Head is atraumatic, normocephalic. Hears conversational speech. No nasal drainage. RESPIRATORY: Non-labored respirations and equal bilateral excursions. CARDIOVASCULAR: Palpable 2+ radial pulses. ABDOMEN: Incisions clean dry intact. MUSCULOSKELETAL: No gross deformity of the lower extremities noted. No clubbing. No cyanosis. SKIN: Good skin turgor. Well perfused. NEUROLOGIC: Cranial nerves II through XII grossly intact. No focal or lateralizing signs. PSYCH: Appropriate affect. Alert and oriented to person, place and time. CLINICAL LABS: Reviewed. Sodium low 132. Creatinine within normal limits ASSESSMENT: 1. Sigmoid diverticulitis with partial bowel obstruction 2. Peritoneal adhesions with intermittent small bowel obstruction 3. Osteoarthritis left leg 4. Osteoarthritis lower back 5. Hypertensive heart disease 6. Obstructive uropathy, present on admission PLAN: 1. Medical reconciliation performed with discontinuation of D5 half-normal normal saline for low sodium. 2. Start simethicone Gas-X scheduled 3. Protonix daily for reflux 4. Consultation to urology for obstructive uropathy, present on admission. 5. As he has high urine output, Glass catheter being discontinued with postvoid residual and urology consultation pending 6. Medical consultation for global multiple comorbidities 7. Continue low fiber diet. 8. at bedside with all questions addressed. 9. Physical therapy ordered for left leg osteoarthritis: Lower back pain 10. Discontinue fentanyl UPHOLSTERY BUNDLER for tramadol for 6-hour consistent pain control for left hip and back pain Dictation was produced using [email or web address] dictation software. Please excuse any grammatical, word or spelling errors. Objective - Vital Signs Vital signs: Vital Signs Temp 98.1 F 06/20/24 20:52 Pulse 112 H 06/21/24 00:47 Resp 18 06/21/24 02:52 BP 117/74 06/21/24 00:47 Pulse Ox 97 06/21/24 00:47 FiO2 Intake & Output 06/20/24 06/21/24 06/21/24 18:59 06:59 18:59 Intake Total 2550 300 Output Total 850 1100 Balance 1700 -800 Weight 99.9 kg 99.9 kg Intake: IV 2550 300 Output: Urine 750 1100 Estimated Blood Loss 100 Other: Voiding Method Indwelling Catheter - Labs CBC & Chem 7: 06/20/24 10:42 06/21/24 05:44 Labs: Abnormal Lab Results - Last 24 Hours (Table) 06/20/24 06/21/24 Range/Units 10:42 05:44 Sodium 134 L 132 L (137-145) mmol/L Creatinine 0.63 L 0.64 L (0.66-1.25) mg/dL Glucose 184 H (74-99) mg/dL
[2024-06-21] MEDS: SODIUM CHLORIDE 0.9% 1,000 ML IV SCH (08:53)
[2024-06-21] MEDS: SIMETHICONE 80 MG CHEWABLE PO SCH (08:55)
[2024-06-21] MEDS: METOPROLOL SUCCINATE (ER) 25 MG TAB.ER.24H PO SCH (08:55)
[2024-06-21] MEDS: METOCLOPRAMIDE 5 MG/ML 2 ML VIAL IVP SCH (08:56)
[2024-06-21] MEDS: FUROSEMIDE 20 MG TAB PO SCH (08:56)
[2024-06-21] MEDS: PANTOPRAZOLE 40 MG/10 ML VIAL IVP SCH (08:56)
[2024-06-21] MEDS: ENOXAPARIN 30 MG/0.3 ML SYRINGE SQ SCH (09:11)
[2024-06-21 09:21] LABS: Basophils # (A) 0.01 X 10*3/uL (0.00-0.10); Basophils % (A) 0.1 %; Eosinophils # (A) 0 X 10*3/uL (0.04-0.35); Eosinophils % (A) 0 %; HCT 37.9 % (39.6-50.0); HGB 12.4 g/dL (13.0-17.0); Lymphocytes # (A) 1.44 X 10*3/uL (0.90-5.00); Lymphocytes % (A) 10.1 %; MCHC 32.7 g/dL (32.0-37.0); MCV 91.8 FL (80.0-97.0); Mean Platelet Volume 13.2 FL (9.5-12.2); Monocytes # (A) 1.24 X 10*3/uL (0.20-1.00); Monocytes % (A) 8.7 %; NRBC Per 100 WBC 0 X 10*3/uL (0.00-0.01); Neutrophils # (A) 11.52 X 10*3/uL (1.80-7.70); Neutrophils % (A) 80.7 %; Platelet Count 152 X 10*3/uL (140-440); RBC 4.13 X 10*6/uL (4.40-5.60); WBC 14.26 X 10*3/uL (4.50-10.00)
--- NOTE | 2024-06-21 10:58 | P.GSCN ---
History of Present Illness Consult date: 06/21/24 History of present illness: 69 yo male in the hospital for sigmoid diverticular disease. He underwent a sigmoid colectomy yesterday by Dr Drummond. We are asked see the patient because of lower urinary tract symptoms that the patient had prior to surgery. The patient's catheter was removed by Dr. Drummond earlier this morning. Historically the patient has symptomatic BPH. His symptoms of slow stream urinary frequency urgency were evaluated and treated by Dr. Levine last year with Flomax 0.4 daily. He stated the improvement was mild. The symptoms are a little better but not completely. He still voids every 1-2 hours. There is no history of urine infection. There is no history of hematuria other than associated with a catheter. Apparently Dr. Drummond told the patient that the colon was plastered against the bladder is noted during the surgery. There is no urinalysis on the chart. The patient's catheter came out about 2 hours ago and he has not urinated yet. The patient is on the Flomax and it was last given on 06/20. Review of Systems All systems: negative - Constitutional Denies fever, Denies weight loss - EENT Eyes: denies blurred vision Ears, nose, mouth and throat: Denies dysphagia - Cardiovascular Denies chest pain, Denies shortness of breath - Respiratory Denies cough, Denies 7 - Gastrointestinal Reports as per HPI - Genitourinary Denies dysuria, Denies hematuria - Integumentary Denies rash, Denies unusual bruising - Neurological Denies headaches, Denies syncope - Hematologic/Lymphatic Denies easy bleeding, Denies easy bruising Past Medical History Past Medical History: Coronary Artery Disease (CAD), Cancer, Hyperlipidemia, Hypertension, Thyroid Disorder Additional Past Medical History / Comment(s): HX OF LYMPHOMA 1984, radiation tx 1984, STATES BOWEL OBSTRUCTION X3, tinnitus, hypothyrpoidism, Lt. hip pain, diverticulitis History of Any Multi-Drug Resistant Organisms: None Reported Past Surgical History: Bowel Resection, Cardiac Valve Replacement, Heart Catheterization With Stent, Pacemaker Additional Past Surgical History / Comment(s): LEFT AXILLARY LYMPH NODES REMOVED, SPLENECTOMY, PARTIAL LIVER REMOVAL, aortic valve replacement (2023) , esau cataract removal,. Sigmoid colectomy, lower anterior resection, lysis of adhesions on 06/20 Past Anesthesia/Blood Transfusion Reactions: No Reported Reaction Date of Last Stent Placement:: 2014 Type of Cardiac Device: Permanent Pacemaker Device Placement Date:: 11/2023 Past Psychological History: Anxiety Smoking Status: Former smoker Past Alcohol Use History: Occasional Additional Past Alcohol Use History / Comment(s): quit smoking 1979, smoked about 10 yrs 1ppd. 5-6 drinks/week - none currently Past Drug Use History: Marijuana Additional Drug Use History / Comment(s): occasional marijuana use, instructed to hold 24 hrs prior to procedure - Past Family History Mother Family Medical History: Cancer Additional Family Medical History / Comment(s): metastatic cancer. maternal grandfather - colon cancer Medications and Allergies Home Medications Medication Instructions Recorded Confirmed Type Aspirin 81 mg PO HS 04/30/14 06/20/24 History Multivitamins, Thera [Multivitamin 1 tab PO DAILY 04/30/14 06/20/24 History (formulary)] Cholecalciferol (Vitamin D3) 2,000 unit PO DAILY 02/10/19 06/20/24 History [Vitamin D3] Levothyroxine Sodium [Synthroid] 150 mcg PO DAILY 02/10/19 06/20/24 History Meloxicam [Mobic] 15 mg PO DAILY 02/10/19 06/20/24 History Metoprolol Succinate (ER) [Toprol 25 mg PO DAILY 02/10/19 06/20/24 History XL] [place]-3 Fatty Acids/Fish Oil [Fish 1 each PO DAILY 02/10/19 06/20/24 History Oil 1,000 mg Softgel] ALPRAZolam [Xanax] 0.25 mg PO HS PRN 05/19/24 06/20/24 History Citalopram Hydrobromide 10 mg PO DAILY 05/19/24 06/20/24 History [Citalopram HBr] Ezetimibe [Zetia] 10 mg PO HS 05/19/24 06/20/24 History Furosemide [Lasix] 20 mg PO DAILY 05/19/24 06/20/24 History Magnesium (Unk) 1 tab PO DAILY 05/19/24 06/20/24 History Potassium Chloride [K-Tab ER] 20 meq PO DAILY 05/19/24 06/20/24 History Rosuvastatin Calcium 40 mg PO HS 05/19/24 06/20/24 History Super C (Unk) 1 dose PO DAILY 05/19/24 06/20/24 History Tamsulosin [Flomax] 0.4 mg PO DAILY 05/19/24 06/20/24 History traMADol HCL 50 mg PO Q6H 05/19/24 06/20/24 History Acetaminophen Tab [Tylenol Tab] 1,000 mg PO Q6HR PRN #30 tablet 06/20/24 Rx Cyclobenzaprine [Flexeril] 10 mg PO TID #30 tab 06/20/24 Rx Simethicone [Gas-X] 125 mg PO AC-TID PRN #20 capsule 06/20/24 Rx Allergies Allergy/AdvReac Type Severity Reaction Status Date / Time No Known Allergies Allergy Verified 06/20/24 10:32 Surgical - Exam Vital Signs Temp Pulse Resp BP Pulse Ox 98.0 F 105 H 16 135/63 97 06/20/24 11:14 06/20/24 11:14 06/20/24 11:14 06/20/24 11:14 06/20/24 11:14 - General well developed, well nourished, no distress - Eyes normal ocular movement, no icteric - ENT no hearing loss, no congestion - Neck no masses, trachea midline - Respiratory normal respiratory effort, clear to auscultation - Abdomen post op sigmodi diverticulectomy, robotic Abdomen: soft, no guarding, no rigid, no rebound - Genitourinary indwelling catheter. - Integumentary no rash, no abnormal pigmentation - Neurologic no disoriented, no combative - Psychiatric oriented to time, oriented to person, oriented to place, speech is normal, memory intact Results - Labs 06/21/24 05:44 06/21/24 05:44 Abnormal Lab Results - Last 24 Hours (Table) 06/20/24 Range/Units 10:42 Sodium 134 L (137-145) mmol/L Creatinine 0.63 L (0.66-1.25) mg/dL Diabetes panel 06/20/24 Range/Units 10:42 Sodium 134 L (137-145) mmol/L Potassium 4.4 (3.5-5.1) mmol/L Chloride 102 (98-107) mmol/L Carbon Dioxide 23 (22-30) mmol/L BUN 17 (9-20) mg/dL Creatinine 0.63 L (0.66-1.25) mg/dL Glucose 91 (74-99) mg/dL Calcium 9.9 (8.4-10.2) mg/dL AST 36 (17-59) U/L ALT 22 (4-49) U/L Alkaline Phosphatase 54 (38-126) U/L Total Protein 6.8 (6.3-8.2) g/dL Albumin 4.6 (3.5-5.0) g/dL Calcium panel 06/20/24 Range/Units 10:42 Calcium 9.9 (8.4-10.2) mg/dL Albumin 4.6 (3.5-5.0) g/dL Pituitary panel 06/20/24 Range/Units 10:42 Sodium 134 L (137-145) mmol/L Potassium 4.4 (3.5-5.1) mmol/L Chloride 102 (98-107) mmol/L Carbon Dioxide 23 (22-30) mmol/L BUN 17 (9-20) mg/dL Creatinine 0.63 L (0.66-1.25) mg/dL Glucose 91 (74-99) mg/dL Calcium 9.9 (8.4-10.2) mg/dL Adrenal panel 06/20/24 Range/Units 10:42 Sodium 134 L (137-145) mmol/L Potassium 4.4 (3.5-5.1) mmol/L Chloride 102 (98-107) mmol/L Carbon Dioxide 23 (22-30) mmol/L BUN 17 (9-20) mg/dL Creatinine 0.63 L (0.66-1.25) mg/dL Glucose 91 (74-99) mg/dL Calcium 9.9 (8.4-10.2) mg/dL Total Bilirubin 0.6 (0.2-1.3) mg/dL AST 36 (17-59) U/L ALT 22 (4-49) U/L Alkaline Phosphatase 54 (38-126) U/L Total Protein 6.8 (6.3-8.2) g/dL Albumin 4.6 (3.5-5.0) g/dL Assessment and Plan Assessment: Impression. Sigmoid diverticular disease s/p surgical sigmoid removal 06/20/2024. Lower urinary tract symptoms consistent with BPH, chronic Recommendations: The catheter has been removed. The patient is on Flomax. We will see how he voids. If he voids adequately we will follow his urinary residuals. If he is unable to urinate we will replace the catheter increase his Flomax to twice daily. He probably would be given another voiding trial prior to discharge. Regardless as to whether he voids he will need to be seen in follow-up in our office. Time with Patient: Greater than 30
--- NOTE | 2024-06-21 12:17 | P.CONS ---
History of Present Illness - Reason for Consult Consult date: 06/21/24 Medical management - History of Present Illness History of present illness; patient is a 69-year-old gentleman with past medical history significant for sigmoid diverticulitis who presented the hospital for constipation. Surgery evaluated the patient and recommended sigmoid colectomy. Patient underwent robotic assisted daVinci Xi sigmoid colectomy with low anterior resection and lysis of adhesion. Postoperatively internal medicine team were consulted for medical management REVIEW OF SYSTEMS: CONSTITUTIONAL: No fever, no malaise, no fatigue. HEENT: No recent visual problems or hearing problems. Denied any sore throat. CARDIOVASCULAR: No chest pain, orthopnea, PND, no palpitations, no syncope. PULMONARY: No shortness of breath, no cough, no hemoptysis. GASTROINTESTINAL: Complaining of abdominal pain. No nausea or vomit NEUROLOGICAL: No headaches, no weakness, no numbness. HEMATOLOGICAL: Denies any bleeding or petechiae. GENITOURINARY: Denies any burning micturition, frequency, or urgency. MUSCULOSKELETAL/RHEUMATOLOGICAL: Denies any joint pain, swelling, or any muscle pain. ENDOCRINE: Denies any polyuria or polydipsia. The rest of the 14-point review of systems is negative. PHYSICAL EXAMINATION: GENERAL: The patient is alert and oriented x3, not in any acute distress. Well developed, well nourished. HEENT: Pupils are round and equally reacting to light. EOMI. No scleral icterus. No conjunctival pallor. Normocephalic, atraumatic. No pharyngeal erythema. No thyromegaly. CARDIOVASCULAR: S1 and S2 present. No murmurs, rubs, or gallops. PULMONARY: Chest is clear to auscultation, no wheezing or crackles. ABDOMEN: Soft, surgical incision seen, MUSCULOSKELETAL: No joint swelling or deformity. EXTREMITIES: No cyanosis, clubbing, or pedal edema. NEUROLOGICAL: Gross neurological examination did not reveal any focal deficits. SKIN: No rashes. Assessment and plan Sigmoid diverticulitis with partial large bowel obstruction Severe peritoneal adhesions Severe pelvic adhesions Severe small bowel adhesions with partial small bowel obstruction Urinary retention Hypothyroidism Hypertension Monitor vital signs Monitor CBC Monitor CMP Status post robotic assisted daVinci Xi sigmoid colectomy with low anterior resection and lysis of adhesion Currently on IV cefazolin and Flagyl per surgery Resume aspirin, Zetia Resume Synthroid Resume Toprol Continue pain management per surgery Continue DVT prophylaxis per surgery Aggressive bowel regimen to prevent opioid-induced constipation PT and OT consulted Labs and medication were reviewed.. Continue same treatment. Continue with symptomatic treatment. Resume home medication. Monitor labs and vitals. DVT and GI prophylaxis. Further recommendations as per clinical course of the patient Dictation was produced using [employer] dictation software. please excuse any grammatical, word or spelling errors. Past Medical History Past Medical History: Coronary Artery Disease (CAD), Cancer, Hyperlipidemia, Hypertension, Thyroid Disorder Additional Past Medical History / Comment(s): HX OF LYMPHOMA 1984, radiation tx 1984, STATES BOWEL OBSTRUCTION X3, tinnitus, hypothyrpoidism, Lt. hip pain, diverticulitis History of Any Multi-Drug Resistant Organisms: None Reported Past Surgical History: Bowel Resection, Cardiac Valve Replacement, Heart Catheterization With Stent, Pacemaker Additional Past Surgical History / Comment(s): LEFT AXILLARY LYMPH NODES REMOVED, SPLENECTOMY, PARTIAL LIVER REMOVAL, aortic valve replacement (2023) , esau cataract removal,. Sigmoid colectomy, lower anterior resection, lysis of adhesions on 06/20 Past Anesthesia/Blood Transfusion Reactions: No Reported Reaction Date of Last Stent Placement:: 2014 Type of Cardiac Device: Permanent Pacemaker Device Placement Date:: 11/2023 Past Psychological History: Anxiety Smoking Status: Former smoker Past Alcohol Use History: Occasional Additional Past Alcohol Use History / Comment(s): quit smoking 1979, smoked abo ut 10 yrs 1ppd. 5-6 drinks/week - none currently Past Drug Use History: Marijuana Additional Drug Use History / Comment(s): occasional marijuana use, instructed to hold 24 hrs prior to procedure - Past Family History Mother Family Medical History: Cancer Additional Family Medical History / Comment(s): metastatic cancer. maternal grandfather - colon cancer Medications and Allergies Home Medications Medication Instructions Recorded Confirmed Type Aspirin 81 mg PO HS 04/30/14 06/20/24 History Multivitamins, Thera [Multivitamin 1 tab PO DAILY 04/30/14 06/20/24 History (formulary)] Cholecalciferol (Vitamin D3) 2,000 unit PO DAILY 02/10/19 06/20/24 History [Vitamin D3] Levothyroxine Sodium [Synthroid] 150 mcg PO DAILY 02/10/19 06/20/24 History Meloxicam [Mobic] 15 mg PO DAILY 02/10/19 06/20/24 History Metoprolol Succinate (ER) [Toprol 25 mg PO DAILY 02/10/19 06/20/24 History XL] [place]-3 Fatty Acids/Fish Oil [Fish 1 each PO DAILY 02/10/19 06/20/24 History Oil 1,000 mg Softgel] ALPRAZolam [Xanax] 0.25 mg PO HS PRN 05/19/24 06/20/24 History Citalopram Hydrobromide 10 mg PO DAILY 05/19/24 06/20/24 History [Citalopram HBr] Ezetimibe [Zetia] 10 mg PO HS 05/19/24 06/20/24 History Furosemide [Lasix] 20 mg PO DAILY 05/19/24 06/20/24 History Magnesium (Unk) 1 tab PO DAILY 05/19/24 06/20/24 History Potassium Chloride [K-Tab ER] 20 meq PO DAILY 05/19/24 06/20/24 History Rosuvastatin Calcium 40 mg PO HS 05/19/24 06/20/24 History Super C (Unk) 1 dose PO DAILY 05/19/24 06/20/24 History Tamsulosin [Flomax] 0.4 mg PO DAILY 05/19/24 06/20/24 History traMADol HCL 50 mg PO Q6H 05/19/24 06/20/24 History Acetaminophen Tab [Tylenol Tab] 1,000 mg PO Q6HR PRN #30 tablet 06/20/24 Rx Cyclobenzaprine [Flexeril] 10 mg PO TID #30 tab 06/20/24 Rx Simethicone [Gas-X] 125 mg PO AC-TID PRN #20 capsule 06/20/24 Rx Allergies Allergy/AdvReac Type Severity Reaction Status Date / Time No Known Allergies Allergy Verified 06/20/24 10:32 Physical Exam Vitals: Vital Signs Temp Pulse Pulse Resp BP Pulse Ox 06/21/24 06:57 98.7 F 129 H 16 135/77 06/21/24 02:52 18 06/21/24 00:47 112 H 117/74 97 06/21/24 00:32 110 H 106/64 98 06/21/24 00:17 108 H 97/62 97 06/21/24 00:02 109 H 106/65 98 06/20/24 23:47 106 H 93/60 98 06/20/24 23:17 107 H 112/70 97 06/20/24 23:03 107 H 113/60 98 06/20/24 22:47 106 H 116/74 98 06/20/24 22:32 108 H 115/73 97 06/20/24 22:30 106 H 16 06/20/24 21:50 105 H 16 139/66 96 06/20/24 21:35 108 H 18 120/72 95 06/20/24 21:20 107 H 18 125/68 95 06/20/24 21:05 108 H 18 103/49 95 06/20/24 20:52 98.1 F 115 H 16 98/47 97 06/20/24 14:13 107 H 16 102/55 98 06/20/24 11:14 98.0 F 105 H 16 135/63 97 Intake and Output 06/20/24 06/21/24 06/21/24 22:59 06:59 14:59 Intake Total 1750 Output Total 850 1100 Balance 900 -1100 Intake: IV 1750 Output: Urine 750 1100 Estimated Blood Loss 100 Other: Voiding Method Indwelling Catheter Weight 99.9 kg Results CBC & Chem 7: 06/21/24 05:44 06/21/24 05:44 Labs: Abnormal Lab Results - Last 24 Hours (Table) 06/20/24 06/21/24 06/21/24 Range/Units 10:42 05:44 05:44 WBC 14.26 H (4.50-10.00) X 10*3/uL RBC 4.13 L (4.40-5.60) X 10*6/uL Hgb 12.4 L (13.0-17.0) g/dL Hct 37.9 L (39.6-50.0) % MPV 13.2 H (9.5-12.2) FL Immature Gran # 0.05 H (0.00-0.04) X 10*3/uL Neutrophils # 11.52 H (1.80-7.70) X 10*3/uL Monocytes # 1.24 H (0.20-1.00) X 10*3/uL Eosinophils # 0 L (0.04-0.35) X 10*3/uL Sodium 134 L 132 L (137-145) mmol/L Creatinine 0.63 L 0.64 L (0.66-1.25) mg/dL Glucose 184 H (74-99) mg/dL
--- NOTE | 2024-06-21 18:56 | P.CRDCN ---
History of Present Illness Consult date: 06/21/24 History of present illness: This is a 69-year-old gentleman who was admitted to the hospital with severe constipation and he underwent a colonoscopy which revealed sigmoid diverticulosis. Subsequently he underwent sigmoid colectomy by Dr. Wick. We consulted to see the patient because of tachycardia after the procedure. The patient reports no cardiovascular symptoms of any heart racing or fluttering or dizziness or lightheadedness or presyncope or syncope and no symptoms of chest pain or chest discomfort. He is known to have CAD with prior stenting with un known details and he follows with a [facility] in [place]. Beside that he does have permanent pacemaker. Also he does have hypertension and dyslipidemia. Currently he is asymptomatic from a cardiovascular standpoint of view. The EKG showed atrial sensed ventricular paced rhythm. No troponin was performed and no D-dimer was performed. The D-dimer probably will be falsely abnormal after the surgery. The physical examination is remarkable for regular rhythm with a heart rate in the 100. The rest of the examination overall appears to be unremarkable. Assessment Status post sigmoid colectomy Sinus tachycardia which has somewhat improved CAD with prior stenting with unknown details Permanent pacemaker Multiple comorbid conditions Plan Continue the current medical regimen The sinus tachycardia has already improved Obtain serial cardiac enzymes Obtain D-dimer to rule out PE Also obtain an echocardiogram with Doppler Follow-up with the patient Past Medical History Past Medical History: Coronary Artery Disease (CAD), Cancer, Hyperlipidemia, H ypertension, Thyroid Disorder Additional Past Medical History / Comment(s): HX OF LYMPHOMA 1984, radiation tx 1984, STATES BOWEL OBSTRUCTION X3, tinnitus, hypothyrpoidism, Lt. hip pain, diverticulitis History of Any Multi-Drug Resistant Organisms: None Reported Past Surgical History: Bowel Resection, Cardiac Valve Replacement, Heart Catheterization With Stent, Pacemaker Additional Past Surgical History / Comment(s): LEFT AXILLARY LYMPH NODES REMOVED, SPLENECTOMY, PARTIAL LIVER REMOVAL, aortic valve replacement (2023) , esau cataract removal,. Sigmoid colectomy, lower anterior resection, lysis of adhesions on 06/20 Past Anesthesia/Blood Transfusion Reactions: No Reported Reaction Date of Last Stent Placement:: 2014 Type of Cardiac Device: Permanent Pacemaker Device Placement Date:: 11/2023 Past Psychological History: Anxiety Smoking Status: Former smoker Past Alcohol Use History: Occasional Additional Past Alcohol Use History / Comment(s): quit smoking 1979, smoked about 10 yrs 1ppd. 5-6 drinks/week - none currently Past Drug Use History: Marijuana Additional Drug Use History / Comment(s): occasional marijuana use, instructed to hold 24 hrs prior to procedure - Past Family History Mother Family Medical History: Cancer Additional Family Medical History / Comment(s): metastatic cancer. maternal grandfather - colon cancer Medications and Allergies Home Medications Medication Instructions Recorded Confirmed Type Aspirin 81 mg PO HS 04/30/14 06/20/24 History Multivitamins, Thera [Multivitamin 1 tab PO DAILY 04/30/14 06/20/24 History (formulary)] Cholecalciferol (Vitamin D3) 2,000 unit PO DAILY 02/10/19 06/20/24 History [Vitamin D3] Levothyroxine Sodium [Synthroid] 150 mcg PO DAILY 02/10/19 06/20/24 History Meloxicam [Mobic] 15 mg PO DAILY 02/10/19 06/20/24 History Metoprolol Succinate (ER) [Toprol 25 mg PO DAILY 02/10/19 06/20/24 History XL] [place]-3 Fatty Acids/Fish Oil [Fish 1 each PO DAILY 02/10/19 06/20/24 History Oil 1,000 mg Softgel] ALPRAZolam [Xanax] 0.25 mg PO HS PRN 05/19/24 06/20/24 History Citalopram Hydrobromide 10 mg PO DAILY 05/19/24 06/20/24 History [Citalopram HBr] Ezetimibe [Zetia] 10 mg PO HS 05/19/24 06/20/24 History Furosemide [Lasix] 20 mg PO DAILY 05/19/24 06/20/24 History Magnesium (Unk) 1 tab PO DAILY 05/19/24 06/20/24 History Potassium Chloride [K-Tab ER] 20 meq PO DAILY 05/19/24 06/20/24 History Rosuvastatin Calcium 40 mg PO HS 05/19/24 06/20/24 History Super C (Unk) 1 dose PO DAILY 05/19/24 06/20/24 History Tamsulosin [Flomax] 0.4 mg PO DAILY 05/19/24 06/20/24 History traMADol HCL 50 mg PO Q6H 05/19/24 06/20/24 History Acetaminophen Tab [Tylenol Tab] 1,000 mg PO Q6HR PRN #30 tablet 06/20/24 Rx Cyclobenzaprine [Flexeril] 10 mg PO TID #30 tab 06/20/24 Rx Simethicone [Gas-X] 125 mg PO AC-TID PRN #20 capsule 06/20/24 Rx Allergies Allergy/AdvReac Type Severity Reaction Status Date / Time No Known Allergies Allergy Verified 06/20/24 10:32 Physical Exam Vitals: Vital Signs Temp Pulse Pulse Resp BP Pulse Ox 06/21/24 13:44 97.7 F 104 H 16 105/59 92 L 06/21/24 06:57 98.7 F 129 H 16 135/77 06/21/24 02:52 18 06/21/24 00:47 112 H 117/74 97 06/21/24 00:32 110 H 106/64 98 06/21/24 00:17 108 H 97/62 97 06/21/24 00:02 109 H 106/65 98 06/20/24 23:47 106 H 93/60 98 06/20/24 23:17 107 H 112/70 97 06/20/24 23:03 107 H 113/60 98 06/20/24 22:47 106 H 116/74 98 06/20/24 22:32 108 H 115/73 97 06/20/24 22:30 106 H 16 06/20/24 21:50 105 H 16 139/66 96 06/20/24 21:35 108 H 18 120/72 95 06/20/24 21:20 107 H 18 125/68 95 06/20/24 21:05 108 H 18 103/49 95 06/20/24 20:52 98.1 F 115 H 16 98/47 97 Intake and Output 06/21/24 06/21/24 06/21/24 06:59 14:59 22:59 Output Total 1100 Balance -1100 Output: Urine 1100 Other: Weight 99.9 kg Results 06/21/24 05:44 06/21/24 05:44 CBC 06/21/24 Range/Units 05:44 WBC 14.26 H (4.50-10.00) X 10*3/uL RBC 4.13 L (4.40-5.60) X 10*6/uL Hgb 12.4 L (13.0-17.0) g/dL Hct 37.9 L (39.6-50.0) % Plt Count 152 (140-440) X 10*3/uL Comprehensive Metabolic Panel 06/21/24 Range/Units 05:44 Sodium 132 L (137-145) mmol/L Potassium 4.4 (3.5-5.1) mmol/L Chloride 103 (98-107) mmol/L Carbon Dioxide 24 (22-30) mmol/L BUN 15 (9-20) mg/dL Creatinine 0.64 L (0.66-1.25) mg/dL Glucose 184 H (74-99) mg/dL Calcium 8.8 (8.4-10.2) mg/dL Current Medications Generic Name Dose Route Start Last Admin Trade Name Freq PRN Reason Stop Dose Admin Alprazolam 0.25 mg 06/20/24 21:33 Alprazolam 0.25 Mg Tab PO HS PRN Insomnia Aspirin 81 mg 06/21/24 21:00 Aspirin 81 Mg PO HS DURAN Ezetimibe 10 mg 06/21/24 21:00 Ezetimibe 10 Mg Tab PO HS DURAN Enoxaparin Sodium 30 mg 06/21/24 09:00 06/21/24 09:11 Enoxaparin 30 Mg/0.3 Ml Syringe SQ 30 mg DAILY DURAN Administration Furosemide 20 mg 06/21/24 09:00 06/21/24 08:56 Furosemide 20 Mg Tab PO 20 mg DAILY DURAN Administration Hydromorphone HCl 1 mg 06/20/24 16:27 Hydromorphone 1 Mg/Ml 1 Ml Syringe IVP Q4HR PRN Severe Pain (Scale 7 to 10) Lactated Ringer's 1,000 mls @ 20 mls/hr 06/20/24 05:43 06/20/24 12:24 Lactated Ringers IV 20 mls/hr .Q24H DURAN Administration Metronidazole 500 mg/ IV 100 mls @ 100 mls/hr 06/21/24 00:00 06/21/24 16:04 Solution IVPB 100 mls/hr Q8HR DURAN Administration Protocol Cefazolin Sodium 2 gm/ Sodium 50 mls @ 100 mls/hr 06/21/24 00:00 06/21/24 16:04 Chloride IVPB 100 mls/hr Q8HR DURAN Administration Protocol Sodium Chloride 1,000 mls @ 75 mls/hr 06/21/24 08:45 06/21/24 08:53 Saline 0.9% IV 75 mls/hr .[id number] DURAN Administration Levothyroxine Sodium 150 mcg 06/21/24 06:30 06/21/24 07:01 Levothyroxine 75 Mcg Tab PO 150 mcg 0630 DURAN Administration Metoclopramide HCl 10 mg 06/21/24 08:30 06/21/24 17:15 Metoclopramide 5 Mg/Ml 2 Ml Vial IVP 10 mg Q6HR DURAN Administration Metoprolol Succinate 25 mg 06/21/24 09:00 06/21/24 08:55 Metoprolol Succinate (Er) 25 Mg Tab.Er.24h PO 25 mg DAILY DURAN Administration Naloxone HCl 0.2 mg 06/20/24 21:31 Naloxone 0.4 Mg/Ml 1 Ml Vial IV Q2M PRN Opioid Reversal Ondansetron HCl 4 mg 06/21/24 00:00 06/21/24 17:15 Ondansetron 4 Mg/2 Ml Vial IVP 4 mg Q6HR DURAN Administration Pantoprazole Sodium 40 mg 06/21/24 09:00 06/21/24 08:56 Pantoprazole 40 Mg/10 Ml Vial IVP 40 mg DAILY DURAN Administration Simethicone 160 mg 06/21/24 09:00 06/21/24 16:05 Simethicone 80 Mg Chewable PO 160 mg TID DURAN Administration Tamsulosin HCl 0.4 mg 06/20/24 21:45 06/21/24 08:56 Tamsulosin 0.4 Mg Cap.Er.24h PO 0.4 mg BID DURAN Administration Tramadol HCl 50 mg 06/21/24 00:00 06/21/24 17:15 Tramadol 50 Mg Tab PO 50 mg Q6HR DURAN Administration Intake and Output 06/21/24 06/21/24 06/21/24 06:59 14:59 22:59 Output Total 1100 Balance -1100 Output: Urine 1100 Other: Weight 99.9 kg 06/21/24 05:44 06/21/24 05:44
[2024-06-21] MEDS: ALPRAZolam 0.25 MG TAB PO PRN (21:55)
[2024-06-21] MEDS: ASPIRIN 81 MG PO SCH (21:55)
[2024-06-21] MEDS: EZETIMIBE 10 MG TAB PO SCH (21:55)
--- NOTE | 2024-06-22 01:29 | CT ---
EXAM: CT Angiography Chest With Intravenous Contrast CLINICAL HISTORY: ITS.REASON CT Reason: D-dimer elevated, HR jump to 160, O2 needs changed TECHNIQUE: Axial computed tomographic angiography images of the chest with intravenous contrast. CTDI is 19.8 mGy and DLP is 488.8 mGy-cm. This CT exam was performed using one or more of the following dose reduction techniques: automated exposure control, adjustment of the mA and/or kV according to patient size, and/or use of iterative reconstruction technique. MIP reconstructed images were created and reviewed. COMPARISON: No relevant prior studies available. FINDINGS: LUNGS: No focal consolidation, pleural effusion, or pneumothorax. Atelectasis at the lung bases. HEART: Cardiomegaly. Prosthetic aortic valve. VASCULATURE: No acute pulmonary embolism. Atherosclerotic changes of the aorta. THYROID: Within normal limits. MEDIASTINUM + LYMPH NODES: Within normal limits. SUPERIOR ABDOMEN: Hepatic steatosis. MUSCULOSKELETAL: Degenerative changes. IMPRESSION: No acute pulmonary embolism.
[2024-06-22 02:40] LABS: Glucose,Whole Blood 140 mg/dL (70-110)
--- NOTE | 2024-06-22 07:40 | P.PN ---
Subjective Progress Note Date: 06/22/24 patient is a 69-year-old gentleman with past medical history significant for sigmoid diverticulitis who presented the hospital for constipation. Surgery evaluated the patient and recommended sigmoid colectomy. Patient underwent robotic assisted daVinci Xi sigmoid colectomy with low anterior resection and lysis of adhesion. Postoperatively internal medicine team were consulted for medical management 06/22. Patient seen and examined. Patient had episode of vomiting overnight. Still not passing any gas or bowel movement. Cardiology eval the patient for sinus tach, heart rate has improved. CTA chest was negative for PE REVIEW OF SYSTEMS: CONSTITUTIONAL: No fever, no malaise,. CARDIOVASCULAR: No chest pain, no palpitations, no syncope. PULMONARY: No shortness of breath, no cough, GASTROINTESTINAL: No diarrhea, no nausea, no vomiting, no abdominal pain. NEUROLOGICAL: No headaches, no weakness, PHYSICAL EXAMINATION: GENERAL: The patient is alert and oriented x3, not in any acute distress. Well developed, well nourished. HEENT: Pupils are round and equally reacting to light. EOMI. No scleral icterus. No conjunctival pallor. Normocephalic, atraumatic. No pharyngeal erythema. No thyromegaly. CARDIOVASCULAR: S1 and S2 present. No murmurs, rubs, or gallops. PULMONARY: Chest is clear to auscultation, no wheezing or crackles. ABDOMEN: Soft, surgical incision seen, MUSCULOSKELETAL: No joint swelling or deformity. EXTREMITIES: No cyanosis, clubbing, or pedal edema. NEUROLOGICAL: Gross neurological examination did not reveal any focal deficits. SKIN: No rashes. Assessment and plan Sigmoid diverticulitis with partial large bowel obstruction Severe peritoneal adhesions Severe pelvic adhesions Severe small bowel adhesions with partial small bowel obstruction Urinary retention Hypothyroidism Hypertension Monitor vital signs Monitor CBC Monitor CMP Status post robotic assisted daVinci Xi sigmoid colectomy with low anterior resection and lysis of adhesion Currently on IV cefazolin and Flagyl per surgery Continue aspirin, Zetia Continue Synthroid Continue Toprol Continue pain management per surgery Continue DVT prophylaxis per surgery Aggressive bowel regimen to prevent opioid-induced constipation Labs and medication were reviewed.. Continue same treatment. Continue with symptomatic treatment. Resume home medication. Monitor labs and vitals. DVT and GI prophylaxis. Further recommendations as per clinical course of the patient Dictation was produced using [employer] dictation software. please excuse any grammatical, word or spelling errors. Objective - Vital Signs Vital signs: Vital Signs Temp 98.9 F 06/22/24 02:40 Pulse 109 H 06/22/24 02:40 Resp 18 06/22/24 02:40 BP 148/73 06/22/24 02:40 Pulse Ox 97 06/22/24 02:40 FiO2 Intake & Output 06/21/24 06/22/24 06/22/24 18:59 06:59 18:59 Intake Total 240 Output Total 600 825 Balance -600 -585 Intake: Oral 240 Output: Urine 600 800 Emesis 25 Other: Voiding Method Indwelling Catheter - Labs CBC & Chem 7: 06/21/24 05:44 06/21/24 05:44 Labs: Abnormal Lab Results - Last 24 Hours (Table) 06/21/24 06/21/24 06/22/24 Range/Units 05:44 19:43 02:39 WBC 14.26 H (4.50-10.00) X 10*3/uL RBC 4.13 L (4.40-5.60) X 10*6/uL Hgb 12.4 L (13.0-17.0) g/dL Hct 37.9 L (39.6-50.0) % MPV 13.2 H (9.5-12.2) FL Immature Gran # 0.05 H (0.00-0.04) X 10*3/uL Neutrophils # 11.52 H (1.80-7.70) X 10*3/uL Monocytes # 1.24 H (0.20-1.00) X 10*3/uL Eosinophils # 0 L (0.04-0.35) X 10*3/uL D-Dimer 1.64 H (<0.60) mg/L FEU POC Glucose (mg/dL) 140 H (70-110) mg/dL
--- NOTE | 2024-06-22 08:27 | P.PN ---
Subjective Progress Note Date: 06/22/24 CHIEF COMPLAINT: Diverticulitis HISTORY OF PRESENT ILLNESS: The patient is a 69-year-old male admitted for large bowel obstruction due to diverticulitis including severe intra-abdominal adhesions with intermittent small bowel obstruction. He is status post low anterior resection with extensive lysis of adhesions 06/20/2024. Yesterday, patient reports small emesis prior to being taken down for CTA of the chest. No flatus. He reports minimal appetite. He has eager to move. Patient has pre-existing obstructive uropathy for which urology seeing. Patient has pre- existing heart disease and cardiology is managing. ROS: No reports of nausea and vomiting. No bowel movements. No fevers or chill s. No new chest pain. No productive sputum PHYSICAL EXAM: VITAL SIGNS: Reviewed CONSTITUTIONAL: Well developed and in no acute distress. EYES: Conjuctivae without sclera icterus. Extraocular movements grossly intact. HEAD, EARS, NOSE, THROAT: Moist buccal mucosa. Head is atraumatic, normocep halic. Hears conversational speech. No nasal drainage. RESPIRATORY: Non-labored respirations and equal bilateral excursions. CARDIOVASCULAR: Palpable 2+ radial pulses. ABDOMEN: Abdominal binder present. Incisions clean dry intact. MUSCULOSKELETAL: No gross deformity of the lower extremities noted. No clubbing. No cyanosis. SKIN: Good skin turgor. Well perfused. NEUROLOGIC: Cranial nerves II through XII grossly intact. No focal or lateralizing signs. PSYCH: Appropriate affect. Alert and oriented to person, place and time. CLINICAL LABS: Reviewed. Troponins negative. 8.5-14.26, expected ASSESSMENT: 1. Sigmoid diverticulitis with partial bowel obstruction 2. Peritoneal adhesions with intermittent small bowel obstruction 3. Osteoarthritis left leg 4. Osteoarthritis lower back 5. Hypertensive heart disease 6. Obstructive uropathy, present on admission 7. Valvular replacement heart disease 8. Tachycardia PLAN: 1. Reviewed medications performed where antibiotics started to resume bowel function 2. Will continue Glass per urology as patient is on Flomax twice daily already while inpatient 3. Continue antibiotics for diverticulitis 4. Continue inpatient hospitalization due to tachycardia, multiple comorbidities 5. Continue PT OT Dictation was produced using [employer] dictation software. Please excuse any grammatical, word or spelling errors. Objective - Vital Signs Vital signs: Vital Signs Temp 98.9 F 06/22/24 02:40 Pulse 109 H 06/22/24 02:40 Resp 18 06/22/24 02:40 BP 148/73 06/22/24 02:40 Pulse Ox 97 06/22/24 02:40 FiO2 Intake & Output 06/21/24 06/22/24 06/22/24 18:59 06:59 18:59 Intake Total 240 Output Total 600 825 Balance -600 -585 Intake: Oral 240 Output: Urine 600 800 Emesis 25 Other: Voiding Method Indwelling Catheter - Labs CBC & Chem 7: 06/21/24 05:44 06/21/24 05:44 Labs: Abnormal Lab Results - Last 24 Hours (Table) 06/21/24 06/21/24 06/22/24 Range/Units 05:44 19:43 02:39 WBC 14.26 H (4.50-10.00) X 10*3/uL RBC 4.13 L (4.40-5.60) X 10*6/uL Hgb 12.4 L (13.0-17.0) g/dL Hct 37.9 L (39.6-50.0) % MPV 13.2 H (9.5-12.2) FL Immature Gran # 0.05 H (0.00-0.04) X 10*3/uL Neutrophils # 11.52 H (1.80-7.70) X 10*3/uL Monocytes # 1.24 H (0.20-1.00) X 10*3/uL Eosinophils # 0 L (0.04-0.35) X 10*3/uL D-Dimer 1.64 H (<0.60) mg/L FEU POC Glucose (mg/dL) 140 H (70-110) mg/dL
[2024-06-22] MEDS: ALVIMOPAN 12 MG CAPSULE PO SCH (08:49)
[2024-06-22 10:01] LABS: Blood Urea Nitrogen 13.5 mg/dL (9.0-27.0); Calcium 8.6 mg/dL (8.7-10.3); Carbon Dioxide 25.9 mmol/L (21.6-31.8); Chloride 100 mmol/L (96-109); Glucose 137 mg/dL (70-110); Potassium 3.9 mmol/L (3.5-5.5); Sodium 137 mmol/L (135-145)
--- NOTE | 2024-06-22 16:34 | P.PN ---
Subjective Progress Note Date: 06/22/24 This is a 69-year-old gentleman who was admitted to the hospital with severe constipation and he underwent a colonoscopy which revealed sigmoid diverticulosis. Subsequently he underwent sigmoid colectomy by Dr. Wick. We consulted to see the patient because of tachycardia after the procedure. The patient reports no cardiovascular symptoms of any heart racing or fluttering or dizziness or lightheadedness or presyncope or syncope and no symptoms of chest pain or chest discomfort. He is known to have CAD with prior stenting with unknown details and he follows with a head banquet waiter/waitress in [place]. Beside that he does have permanent pacemaker. Also he does have hypertension and dyslipidemia. Currently he is asymptomatic from a cardiovascular standpoint of view. The EKG showed atrial sensed ventricular paced rhythm. No troponin was performed and no D-dimer was performed. The D-dimer probably will be falsely abnormal after the surgery. The physical examination is remarkable for regular rhythm with a heart rate in the 100. The rest of the examination overall appears to be unremarkable. June 22, 2024 The patient was seen and evaluated this morning. He is stable beside being slightly tachycardic. D-dimer was abnormal but CT scan did not show any evidence of pulmonary embolism. He is resting heart rate around 110 bpm and he is experiencing mild hip discomfort. I am going to increase the dose of Toprol- XL to 50 mg p.o. daily. The echocardiogram still pending. The physical exa mination is remarkable for regular rhythm with diminished breathing sounds bilaterally and mild bilateral lower extremities edema. Assessment Status post sigmoid colectomy Sinus tachycardia which has somewhat improved CAD with prior stenting with unknown details Permanent pacemaker Multiple comorbid conditions Plan Continue the current medical regimen Increase the dose of Toprol-XL If the echo did not show any abnormal findings we will follow-up with the patient on as needed case Stop the IV fluid Objective - Vital Signs Vital signs: Vital Signs Temp 98.4 F 06/22/24 14:38 Pulse 122 H 06/22/24 14:38 Resp 16 06/22/24 14:38 BP 110/62 06/22/24 14:38 Pulse Ox 98 06/22/24 14:38 FiO2 Intake & Output 06/21/24 06/22/24 06/22/24 18:59 06:59 18:59 Intake Total 240 480 Output Total 600 825 Balance -600 -585 480 Intake: Oral 240 480 Output: Urine 600 800 Emesis 25 Other: Voiding Method Indwelling Catheter - Labs CBC & Chem 7: 06/21/24 05:44 06/22/24 05:31 Labs: Abnormal Lab Results - Last 24 Hours (Table) 06/21/24 06/22/24 06/22/24 Range/Units 19:43 02:39 05:31 D-Dimer 1.64 H (<0.60) mg/L FEU BUN/Creatinine Ratio 22.50 H (12.00-20.00) Ratio Glucose 137 H (70-110) mg/dL POC Glucose (mg/dL) 140 H (70-110) mg/dL Calcium 8.6 L (8.7-10.3) mg/dL
[2024-06-23] MEDS: METOPROLOL SUCCINATE (ER) 50 MG TAB.ER.24H PO SCH (08:25)
[2024-06-23 08:44] LABS: Basophils % (A) 0 %; Eosinophils # (A) 0.4 k/uL (0-0.7); Eosinophils % (A) 3 %; HGB 13.2 gm/dL (13.0-17.5); Lymphocytes % (A) 21 %; MCH 29.8 pg (25.0-35.0); MCHC 32.2 g/dL (31.0-37.0); MCV 92.5 fL (80.0-100.0); Mean Platelet Volume 10.4; Monocytes # (A) 0.8 k/uL (0-1.0); Monocytes % (A) 5 %; Neutrophils # (A) 10.2 k/uL (1.3-7.7); Neutrophils % (A) 70 %; Platelet Count 162 k/uL (150-450); RBC 4.43 m/uL (4.30-5.90); RDW 13.6 % (11.5-15.5); WBC 14.7 k/uL (3.8-10.6)
--- NOTE | 2024-06-23 12:42 | P.PN ---
Subjective Progress Note Date: 06/23/24 CHIEF COMPLAINT: Diverticulitis HISTORY OF PRESENT ILLNESS: Postop day #3 status post lower anterior resection and lysis of adhesions. Patient reports his pain is controlled. He did have a small bowel movement and flatus. Glass catheter was removed this morning. CTA showed no evidence of PE. Heart rate improved with increase of the beta- [place]. Afebrile. WBC about the same at 14.7 PHYSICAL EXAM: VITAL SIGNS: Reviewed GENERAL: Well-developed in no acute distress. HEENT: No sclera icterus. Extraocular movements grossly intact. Moist buccal mucosa. Head is atraumatic, normocephalic. Hears conversational speech. No nasal drainage. NECK: Supple without lymphadenopathy. CHEST: Non-labored respirations and equal bilateral excursions. CARDIOVASCULAR: Palpable 2+ radial pulses. ABDOMEN: Soft. Nondistended. Incision sites clean dry and intact MUSCULOSKELETAL: No clubbing or cyanosis. NEUROLOGIC: No focal or lateralizing signs. Cranial nerves II through XII grossly intact. PSYCH: Appropriate affect. Alert and oriented to person, place and time. SKIN: Well perfused. Good skin turgor. ASSESSMENT: 1. Sigmoid diverticulitis with partial bowel obstruction 2. Peritoneal adhesions with intermittent small bowel obstruction 3. Osteoarthritis left leg 4. Osteoarthritis lower back 5. Hypertensive heart disease 6. Obstructive uropathy, present on admission 7. Valvular replacement heart disease 8. Tachycardia PLAN: -Continue antibiotics -Encourage patient to increase activity level -Monitor for urinary retention. Glass catheter removed this morning. -Continue full liquid diet and Premier protein drinks -Repeat CBC in a.m. Physician Manufacturer Representative note has been reviewed by physician. Signing provider agrees with the documented findings, assessment, and plan of care. Objective - Vital Signs Vital signs: Vital Signs Temp 97.8 F 06/23/24 07:10 Pulse 94 06/23/24 07:10 Resp 14 06/23/24 07:10 BP 104/68 06/23/24 07:10 Pulse Ox 100 06/23/24 07:10 FiO2 Intake & Output 06/22/24 06/23/24 06/23/24 18:59 06:59 18:59 Intake Total 480 Output Total 1900 2625 Balance -1420 -2625 Intake: Oral 480 Output: Urine 1900 2625 Other: Voiding Method Indwelling Catheter - Labs CBC & Chem 7: 06/23/24 08:30 06/22/24 05:31 Labs: Abnormal Lab Results - Last 24 Hours (Table) 06/23/24 Range/Units 08:30 WBC 14.7 H (3.8-10.6) k/uL Neutrophils # 10.2 H (1.3-7.7) k/uL
--- NOTE | 2024-06-23 14:29 | P.PN ---
Progress Note - Text Progress Note Date: 06/23/24 patient is a 69-year-old gentleman with past medical history significant for sigmoid diverticulitis who presented the hospital for constipation. Surgery evaluated the patient and recommended sigmoid colectomy. Patient underwent robotic assisted daVinci Xi sigmoid colectomy with low anterior resection and lysis of adhesion. Postoperatively internal medicine team were consulted for medical management 06/22. Patient seen and examined. Patient had episode of vomiting overnight. Still not passing any gas or bowel movement. Cardiology eval the patient for sinus tach, heart rate has improved. CTA chest was negative for PE June 23: Full liquid diet. Had a small BM. Passing flatus. Glass catheter discontinued. Will try to DC patient's oxygen. Daughter at the bedside. Seen by PT OT. Discussed with patient at bedside Active Medications Alprazolam (Alprazolam 0.25 Mg Tab) 0.25 mg PO HS PRN PRN Reason: Insomnia Last Admin: 06/21/24 21:55 Dose: 0.25 mg Alvimopan (Alvimopan 12 Mg Capsule) 12 mg PO BID [facility] Stop: 06/28/24 21:01 Last Admin: 06/23/24 08:25 Dose: 12 mg Aspirin (Aspirin 81 Mg) 81 mg PO HS [facility] Last Admin: 06/22/24 20:55 Dose: 81 mg Ezetimibe (Ezetimibe 10 Mg Tab) 10 mg PO HS [facility] Last Admin: 06/22/24 20:55 Dose: 10 mg Enoxaparin Sodium (Enoxaparin 30 Mg/0.3 Ml Syringe) 30 mg SQ DAILY [facility] Last Admin: 06/23/24 08:25 Dose: 30 mg Furosemide (Furosemide 20 Mg Tab) 20 mg PO DAILY [facility] Last Admin: 06/23/24 08:25 Dose: 20 mg Hydromorphone HCl (Hydromorphone 1 Mg/Ml 1 Ml Syringe) 1 mg IVP Q4HR PRN PRN Reason: Severe Pain (Scale 7 to 10) Lactated Ringer's (Lactated Ringers) 1,000 mls @ 20 mls/hr IV .Q24H [facility] Last Admin: 06/22/24 20:58 Dose: Not Given Metronidazole 500 mg/ IV (Solution) 100 mls @ 100 mls/hr IVPB Q8HR [facility]; Protocol Last Admin: 06/23/24 08:25 Dose: 100 mls/hr Cefazolin Sodium 2 gm/ Sodium (Chloride) 50 mls @ 100 mls/hr IVPB Q8HR [facility]; Protocol Last Admin: 06/23/24 08:25 Dose: 100 mls/hr Levothyroxine Sodium (Levothyroxine 75 Mcg Tab) 150 mcg PO 0630 [facility] Last Admin: 06/23/24 05:47 Dose: 150 mcg Metoclopramide HCl (Metoclopramide 5 Mg/Ml 2 Ml Vial) 10 mg IVP Q6HR [facility] Last Admin: 06/23/24 11:54 Dose: 10 mg Metoprolol Succinate (Metoprolol Succinate (Er) 50 Mg Tab.Er.24h) 50 mg PO DAILY [facility] Last Admin: 06/23/24 08:25 Dose: 50 mg Naloxone HCl (Naloxone 0.4 Mg/Ml 1 Ml Vial) 0.2 mg IV Q2M PRN PRN Reason: Opioid Reversal Ondansetron HCl (Ondansetron 4 Mg/2 Ml Vial) 4 mg IVP Q6HR [facility] Last Admin: 06/23/24 11:54 Dose: 4 mg Pantoprazole Sodium (Pantoprazole 40 Mg/10 Ml Vial) 40 mg IVP DAILY [facility] Last Admin: 06/23/24 08:25 Dose: 40 mg Simethicone (Simethicone 80 Mg Chewable) 160 mg PO TID [facility] Last Admin: 06/23/24 08:25 Dose: 160 mg Tamsulosin HCl (Tamsulosin 0.4 Mg Cap.Er.24h) 0.4 mg PO BID [facility] Last Admin: 06/23/24 08:25 Dose: 0.4 mg Tramadol HCl (Tramadol 50 Mg Tab) 50 mg PO Q6HR [facility] Last Admin: 06/23/24 11:54 Dose: 50 mg On examination: VITAL SIGNS: [98.1, 96, 15, 91 x 55, 95% 3 L] GENERAL APPEARANCE: BMI 31.6, up in a recliner comfortable HEENT: Normal external appearance of nose and ear. Oral cavity normal EYES: Pupils equal. Conjunctiva normal. NECK: JVD not raised. Mass not palpable. RESPIRATORY: Respiratory effort normal. Lungs clear to auscultation. CARDIOVASCULAR: First and second sounds normal. No edema. ABDOMEN: Soft. Liver and spleen not palpable. No tenderness. No mass palpable. PSYCHIATRY: Alert and oriented x3. Mood and affect normal. INVESTIGATIONS, reviewed in the clinical context: June 23: White count 14.7 hemoglobin 13.2 sodium 137 potassium 3.9 creatinine 0.6 Chest CTA: Negative for PE Assessment and plan: -Acute sigmoid diverticulitis with partial large bowel obstruction Robotic sigmoid colectomy with low anterior resection, lysis of additions by Dr. Drummond on June 20, 2024 On full liquid diet. Small BM. Passing flatus. -Urinary retention-Glass discontinued today. Likely from BPH Flomax added -Hypothyroidism Synthroid 150 mcg a day -Hypertension Toprol-XL -CAD with a prior history of stent Follows with cardiology in [place]. Aspirin. Toprol-XL -Chronic tinnitus -History of splenectomy with partial liver removal -Aortic valve replacement 2023 -Permanent pacemaker Patient was tachycardic. Cardiology increased her Toprol-XL to 50 mg a day Discussed with patient and at the bedside. PT OT.
--- NOTE | 2024-06-23 18:28 | CDI ---
Date: 06/23/2024 From: Scarlet [email or web address] Email: [email or web address] Admit Date: 06/20/2024 09:57:00 AM Patient Name: Aki Sumner Visit Number: [id number] Discharge Date: N/A ATTENTION: The Clinical Documentation Specialists (CDI) and [facility] Coding Staff appreciate your assistance in clarifying documentation. Please respond to the clarification below the line at the bottom and electronically sign. The CDI & [facility] Coding staff will review the response and follow-up if needed. Please note: Queries are made part of the Legal Health Record. If you have any questions, please contact the author of this message via ITS. Dr. Meme Drummond, Low sodium is documented in your Progress Note on 06/21/2024. Please clarify if there is an additional diagnosis and/or clinical significance related to this value. History/Risk Factors: 69-year-old male admitted due to worsening constipation. PMH: Diverticulosis, hypertensive heart disease, chronic heart failure, former nicotine dependence, BPH Clinical Indicators: v Documentation Location: Electronic Medical Record Lab Trend: 06/20/2024 06/21/2024 06/22/2024 Serum Sodium Level 134 132 137 Treatment: Pertinent Labs Monitored with Trend 5% Dextrose/0.45% Sodium Chloride IV Infusion: Discontinued 0.9% Sodium Chloride IV Infusion @ 75mL/hr. Lactated Ringers IV Infusion @ 20mL/hr. Is there an additional diagnosis and/or clinical significance related to the above lab result/information? [ ] Hyponatremia [ X ] No additional diagnosis/Not clinically significant [ ] Other, please specify [ ] Unable to determine MTDD
--- NOTE | 2024-06-23 18:39 | CA ---
Transthoracic Echo Report Name: Aki Sumner Age: 69 Gender: M : 1955 Exam Date: 06/23/2024 09:12 Exam Location: [place] [facility] Ht (in): 70 Wt (lb): 220 Ordering Physician: Farhat Benitez MD Attending/Referring Phys: [employer] Jasmina Jeronimo RDCS Procedure CPT: Indications: tachy Cardiac Hx: Pacemaker, AV replacement Technical Quality: Fair Contrast 1: Definity Total Dose (mL): 2 Contrast 2: Total Dose (mL): MEASUREMENTS (Male / Female) Normal Values 2D ECHO LV Diastolic Diameter PLAX 3.3 cm 4.2 - 5.9 / 3.9 - 5.3 cm LV Systolic Diameter PLAX 2.8 cm IVS Diastolic Thickness 0.7 cm 0.6 - 1.0 / 0.6 - 0.9 cm LVPW Diastolic Thickness 0.9 cm 0.6 - 1.0 / 0.6 - 0.9 cm LV Relative Wall Thickness 0.5 RV Internal Dim ED PLAX 1.7 cm LVOT Diameter 2.1 cm LA Systolic Diameter LX 3.7 cm 3.0 - 4.0 / 2.7 - 3.8 cm LA Volume 41.2 cm??? 18 - 58 / 22 - 52 cm??? LA Volume Index 18.3 cm???/m??? 16 - 28 cm???/m??? M-MODE Aortic Root Diameter MM 2.9 cm LA Systolic Diameter MM 4.5 cm LA Ao Ratio MM 1.5 DOPPLER AV Peak Velocity 148.3 cm/s AV Peak Gradient 8.8 mmHg AV Mean Velocity 109.9 cm/s AV Mean Gradient 5.5 mmHg AV Velocity Time Integral 28.4 cm LVOT Peak Velocity 73.9 cm/s LVOT Peak Gradient 2.2 mmHg LVOT Velocity Time Integral 15.8 cm LVOT Stroke Volume 52.6 cm??? LVOT Stroke Volume Index 24.2 ml/m??? LVOT Cardiac Index 2291.2 cm???/min???m??? AV Area Cont Eq vti 1.9 cm??? AV Area Cont Eq pk 1.7 cm??? MV Peak Velocity 187.4 cm/s MV Peak Gradient 14.0 mmHg MV Mean Velocity 106.6 cm/s MV Mean Gradient 5.8 mmHg MV Velocity Time Integral 32.5 cm MV Area PHT 3.9 cm??? TR Peak Velocity 183.8 cm/s TR Peak Gradient 13.5 mmHg FINDINGS Left Ventricle Left ventricular ejection fraction is estimated at 25-30%. Left ventricular cavity size normal. Left ventricular wall thickness normal. [place] hypokinetic. Right Ventricle Normal right ventricular size and function. Right ventricular systolic pressure within normal limits. Right Atrium Normal right atrial size. Catheter/pacemaker wire in the right atrial cavity. Left Atrium Mild left atrial dilatation. Mitral Valve Moderate mitral stenosis, 5.8 mmHg. Mitral valve thickened. Mitral annular calcification. Mild mitral regurgitation. Aortic Valve Normally functioning bioprosthetic aortic valve without stenosis with a peak velocity of 1.48 m/s, peak gradient 8.8 mmHg, mean gradient 5.5mmHg. No paravalvular aortic regurgitation. No central aortic regurgitation. Tricuspid Valve Structurally normal tricuspid valve. Moderate tricuspid regurgitation. No tricuspid stenosis. Pulmonic Valve Structurally normal pulmonic valve. Trace pulmonic regurgitation. No pulmonic stenosis. Pericardium No pericardial or pleural effusion. Aorta Normal size aortic root and proximal ascending aorta. CONCLUSIONS Diagnosis: Tachycardia, history of aortic valve replacement Severe LV dysfunction ejection fraction 25%. Patient tachycardic Mitral stenosis Bioprosthetic valve gradients appear normal but LV function is reduced. Large apical aneurysm Previewed by: Dr. Ryne Marquez MD (Electronically Signed) Final Date: 23 June 2024 18:38
[2024-06-23] MEDS: HYDROmorphone 1 MG/ML 1 ML SYRINGE IVP PRN (20:43)
[2024-06-24 08:28] LABS: Basophils # (A) 0.06 X 10*3/uL (0.00-0.10); Basophils % (A) 0.6 %; Eosinophils # (A) 0.62 X 10*3/uL (0.04-0.35); Eosinophils % (A) 6.1 %; HCT 35.4 % (39.6-50.0); HGB 11.6 g/dL (13.0-17.0); Lymphocytes # (A) 2.62 X 10*3/uL (0.90-5.00); Lymphocytes % (A) 25.7 %; MCH 30.1 pg (27.0-32.0); MCHC 32.8 g/dL (32.0-37.0); MCV 91.9 FL (80.0-97.0); Mean Platelet Volume 13.4 FL (9.5-12.2); Monocytes # (A) 0.97 X 10*3/uL (0.20-1.00); Monocytes % (A) 9.5 %; NRBC Per 100 WBC 0 X 10*3/uL (0.00-0.01); Neutrophils # (A) 5.86 X 10*3/uL (1.80-7.70); Neutrophils % (A) 57.6 %; Platelet Count 153 X 10*3/uL (140-440); RBC 3.85 X 10*6/uL (4.40-5.60); WBC 10.18 X 10*3/uL (4.50-10.00)
[2024-06-24 14:06] VITALS: BP 98/58; PULSE 91; RESP 17; TEMP 98.1
--- NOTE | 2024-06-24 14:54 | P.DS ---
Providers Date of admission: 06/20/24 09:57 Expected date of discharge: 06/24/24 Attending physician: Meme Drummond Consults: 06/20/24 07:52 Consult Physician Routine Consulting Provider: [facility] Consult Reason/Comments: Abdominal wall block Do you want consulting provider notified?: Yes 06/20/24 21:35 Consult Physician Routine Consulting Provider: Eduardo Guzmán Consult Reason/Comments: Obstructive uropathy Do you want consulting provider notified?: Yes, Notify in am 06/20/24 21:40 Consult Physician Routine Consulting Provider: Ken Colmenares Consult Reason/Comments: Medical management Do you want consulting provider notified?: Yes, Notify in am 06/21/24 10:42 Consult Physician Routine Consulting Provider: Farhat Benitez Consult Reason/Comments: Tachyarrhythmia, CHF Do you want consulting provider notified?: Yes Primary care physician: Salazar Levine Hospital Course: Discharge diagnosis 1. Sigmoid diverticulitis with partial bowel obstruction 2. Peritoneal adhesions with intermittent small bowel obstruction 3. Osteoarthritis left leg 4. Osteoarthritis lower back 5. Hypertensive heart disease 6. Obstructive uropathy, present on admission 7. Valvular replacement heart disease 8. Tachycardia 9. Urinary retention Hospital course The patient is a 69-year-old male who presents with worsening constipation and pre-existing history of diverticulosis with now progressive large bowel obstruction for over 2 months. Patient is status post robotic lower anterior resection and lysis of adhesions. Patient tolerated surgery well. His pain is controlled. He is tolerating diet. He is afebrile. He has been up and ambulating. He is having bowel movements. He did have urinary retention and has Glass catheter in place. Patient scheduled to follow-up with urology outpatient. Patient evaluated by cardiology during this admission. Patient cleared by cardiology for discharge. They have adjusted medications and inc reased the dose of metoprolol. Patient is stable for discharge. Physician Quail Farmer note has been reviewed by physician. Signing provider agrees with the documented findings, assessment, and plan of care. Patient Condition at Discharge: Stable Plan - Discharge Summary Discharge Rx Participant: No New Discharge Prescriptions: New Simethicone [Gas-X] 125 mg PO AC-TID PRN #20 capsule PRN Reason: Pain Metoprolol Succinate (ER) [Toprol XL] 50 mg PO DAILY #30 tab Cyclobenzaprine [Flexeril] 10 mg PO TID #30 tab Acetaminophen Tab [Tylenol Tab] 1,000 mg PO Q6HR PRN #30 tablet PRN Reason: Pain Continue Multivitamins, Thera [Multivitamin (formulary)] 1 tab PO DAILY Aspirin 81 mg PO HS Levothyroxine Sodium [Synthroid] 150 mcg PO DAILY Meloxicam [Mobic] 15 mg PO DAILY [place]-3 Fatty Acids/Fish Oil [Fish Oil 1,000 mg Softgel] 1 each PO DAILY Cholecalciferol (Vitamin D3) [Vitamin D3] 2,000 unit PO DAILY ALPRAZolam [Xanax] 0.25 mg PO HS PRN PRN Reason: Insomnia Super C (Unk) 1 dose PO DAILY Potassium Chloride [K-Tab ER] 20 meq PO DAILY Magnesium (Unk) 1 tab PO DAILY Furosemide [Lasix] 20 mg PO DAILY Ezetimibe [Zetia] 10 mg PO HS traMADol HCL 50 mg PO Q6H Tamsulosin [Flomax] 0.4 mg PO DAILY Rosuvastatin Calcium 40 mg PO HS Citalopram Hydrobromide [Citalopram HBr] 10 mg PO DAILY Discontinued Metoprolol Succinate (ER) [Toprol XL] 25 mg PO DAILY Discharge Medication List Aspirin 81 mg PO HS 04/30/14 [History] Multivitamins, Thera [Multivitamin (formulary)] 1 tab PO DAILY 04/30/14 [History] Cholecalciferol (Vitamin D3) [Vitamin D3] 2,000 unit PO DAILY 02/10/19 [History] Levothyroxine Sodium [Synthroid] 150 mcg PO DAILY 02/10/19 [History] Meloxicam [Mobic] 15 mg PO DAILY 02/10/19 [History] [place]-3 Fatty Acids/Fish Oil [Fish Oil 1,000 mg Softgel] 1 each PO DAILY 02/10/19 [History] ALPRAZolam [Xanax] 0.25 mg PO HS PRN 05/19/24 [History] Citalopram Hydrobromide [Citalopram HBr] 10 mg PO DAILY 05/19/24 [History] Ezetimibe [Zetia] 10 mg PO HS 05/19/24 [History] Furosemide [Lasix] 20 mg PO DAILY 05/19/24 [History] Magnesium (Unk) 1 tab PO DAILY 05/19/24 [History] Potassium Chloride [K-Tab ER] 20 meq PO DAILY 05/19/24 [History] Rosuvastatin Calcium 40 mg PO HS 05/19/24 [History] Super C (Unk) 1 dose PO DAILY 05/19/24 [History] Tamsulosin [Flomax] 0.4 mg PO DAILY 05/19/24 [History] traMADol HCL 50 mg PO Q6H 05/19/24 [History] Acetaminophen Tab [Tylenol Tab] 1,000 mg PO Q6HR PRN #30 tablet 06/20/24 [Rx] Cyclobenzaprine [Flexeril] 10 mg PO TID #30 tab 06/20/24 [Rx] Simethicone [Gas-X] 125 mg PO AC-TID PRN #20 capsule 06/20/24 [Rx] Metoprolol Succinate (ER) [Toprol XL] 50 mg PO DAILY #30 tab 06/24/24 [Rx] Follow up Appointment(s)/Referral(s): Farhta Benitez MD [STAFF PHYSICIAN] - 2 Weeks Bigg Hernández MD [STAFF PHYSICIAN] - 1 Week Meme Drummond MD [STAFF PHYSICIAN] - 07/01/24 [facility] [NON-STAFF] - As Needed Activity/Diet/Wound Care/Special Instructions: Wear abdominal binder at all times for comfort. No lifting over 4 pounds in 4 weeks. You May shower. No bath tub soaks for two weeks Avoid steak, tough meats and seeds such as raspberry seeds. Use Tylenol scheduled for the next 24-48 hours for best pain relief. Use ice along incisions to prevent swelling. Discharged with Glass catheter in place. Patient to follow-up with urology for Glass catheter removal. Discharge Disposition: HOME WITH HOME HEALTH SERVICES
--- NOTE | 2024-06-24 16:53 | P.PN ---
Progress Note - Text Progress Note Date: 06/24/24 patient is a 69-year-old gentleman with past medical history significant for sigmoid diverticulitis who presented the hospital for constipation. Surgery evaluated the patient and recommended sigmoid colectomy. Patient underwent robotic assisted daVinci Xi sigmoid colectomy with low anterior resection and lysis of adhesion. Postoperatively internal medicine team were consulted for medical management 06/22. Patient seen and examined. Patient had episode of vomiting overnight. Still not passing any gas or bowel movement. Cardiology eval the patient for sinus tach, heart rate has improved. CTA chest was negative for PE June 23: Full liquid diet. Had a small BM. Passing flatus. Glass catheter discontinued. Will try to DC patient's oxygen. Daughter at the bedside. Seen by PT OT. Discussed with patient at bedside June 24: Saw the patient this morning. On liquid diet. Passing flatus. No nausea vomiting. Did ambulate in the hallway. 132 feet with a rolling walker On examination: VITAL SIGNS: 98.1, 91, 17, 98 x 58, 98% room air GENERAL APPEARANCE: BMI 31.6, up in a recliner comfortable HEENT: Normal external appearance of nose and ear. Oral cavity normal EYES: Pupils equal. Conjunctiva normal. NECK: JVD not raised. Mass not palpable. RESPIRATORY: Respiratory effort normal. Lungs clear to auscultation. CARDIOVASCULAR: First and second sounds normal. No edema. ABDOMEN: Soft. Liver and spleen not palpable. No tenderness. No mass palpable. AUDRA drain PSYCHIATRY: Alert and oriented x3. Mood and affect normal. INVESTIGATIONS, reviewed in the clinical context: June 24: White count 10.1 hemoglobin 11.6 June 23: White count 14.7 hemoglobin 13.2 sodium 137 potassium 3.9 creatinine 0.6 Chest CTA: Negative for PE 2D echocardiogram: EF 25 to 30%. [place] hypokinetic. Moderate MS. Bioprosthetic arctic valve without stenosis. Moderate TR. Trace pulmonary regurgitation. Assessment and plan: -Acute sigmoid diverticulitis with partial large bowel obstruction Robotic sigmoid colectomy with low anterior resection, lysis of additions by Dr. Drummond on June 20, 2024 On full liquid diet.-Passing flatus. -Urinary retention-. Likely from BPH Flomax Glass catheter to be reinserted after it was discontinued yesterday. Follow-up with urology outpatient -Moderate mitral stenosis. Bioprosthetic arctic valve without stenosis. Moderate tricuspid regurgitation. Follow-up with cardiology -Hypothyroidism Synthroid 150 mcg a day -Hypertension Toprol-XL -CAD with a prior history of stent Follows with cardiology in [place]. Aspirin. Toprol-XL -Chronic tinnitus -History of splenectomy with partial liver removal -Aortic valve replacement 2023 -Permanent pacemaker Patient was tachycardic. Cardiology increased her Toprol-XL to 50 mg a day Continue current medication treatment plan. Increase activity.
--- NOTE | 2024-06-26 09:22 | CDI ---
Documentation Clarification Form Date: 06/26/24 From: Tabby Alexander Admit Date: 06/20/2024 09:57:00 AM Patient Name: Aki Sumner Visit Number: [id number] Discharge Date: 06/24/2024 04:02:00 PM ATTENTION: The Clinical Documentation Specialists (CDI) and [facility] Coding Staff appreciate your assistance in clarifying documentation. Please respond to the clarification below the line at the bottom and electronically sign. The CDI & [facility] Coding staff will review the response and follow-up if needed. Please note: Queries are made part of the Legal Health Record. If you have any questions, please contact the author of this message via ITS. Doctor/Provider: Farhat Benitez, Your patient has the documented diagnosis of unspecified heart failure [insert date, location]. Additional information regarding the type of CHF is requested. History/Risk Factors: Diverticulitis, HTN w heart failure, CAD, former smoker, hypothyroidism Clinical Indicators: Currently asymptomatic from cardio vascular standpoint of view. (Cardio consult) VS/Pulse OX: T 98.0, P 105, R 16, BP 135/63 O2 97 RA, 97 simple mask 6 L, 95 NL 3 L, 95 NC 3L (06/20 BNP: None Echocardiogram Results: Left ventricular ejection fraction is estimated at 25- 30%.Left ventricular cavitysize normal. Left ventricular wall thickness normal .[place] hypokinetic. Chest X Ray: None Treatment: 20 mg PO Furosemide In your professional opinion, can you please clarify the type of CHF if known? [ ] Chronic Systolic Heart Failure (reduced EF) [ ] Chronic Diastolic Heart Failure (preserved EF) [ ] Chronic Systolic & Diastolic Heart Failure [ ] Other, please specify [ ] Unable to determine MTDD
--- NOTE | 2024-06-26 09:23 | CDI ---
Documentation Clarification Form Date: 06/26/2024 09:26:56 AM From: Tabby Alexander Admit Date: 06/20/2024 09:57:00 AM Patient Name: Aki Sumner Visit Number: [id number] Discharge Date: 06/24/2024 04:02:00 PM ATTENTION: The Clinical Documentation Specialists (CDI) and [facility] Coding Staff appreciate your assistance in clarifying documentation. Please respond to the clarification below the line at the bottom and electronically sign. The CDI & [facility] Coding staff will review the response and follow-up if needed. Please note: Queries are made part of the Legal Health Record. If you have any questions, please contact the author of this message via ITS. Doctor/Provider: Meme Drummond, Hyperkalemia is documented in the H&Ps which may lack sufficient clinical evidence/support in the medical record. Additional clarification is requested. History/Risk Factors: Diverticulitis, HTN w heart failure, CAD, former smoker, hypothyroidism Clinical Indicators: Potassium - range 3.5-5.1 06/20 4.4 06/21 4.4 06/22 3.9 Treatment: Monitor potassium levels Please clarify if hyperkalemia is a valid diagnosis? [ ] No, Hyperkalemia is ruled out [X ] Yes, Hyperkalemia is present as evidence by (additional clinical support): _ was present on pre-admission blood work 06/16/24 warranting repeat labs and intervention with telephone call directing patient to stay hydrated and avoid potassium supplements [ ] Other (please specify diagnosis) [ ] Unable to determine MTDD
== END 2024-06-24 16:02 | disposition home health service (06) | DRG 329 ==
LOC: 2ORMAIN 09:57 → 4SSUR 17:20
PROVIDERS: ADMIT Surgery Plastic and Reconstructive Surgery; ATTEND Surgery Plastic and Reconstructive Surgery
PROC: 8E0W4CZ Robotic Assisted Procedure of Trunk Region, Percutaneous Endoscopic Approach (ICD-10-PCS; principal; 2024-06-20 13:45)
PROC: 0DNE4ZZ Release Large Intestine, Percutaneous Endoscopic Approach (ICD-10-PCS; principal; 2024-06-20 13:45)
PROC: 0DN84ZZ Release Small Intestine, Percutaneous Endoscopic Approach (ICD-10-PCS; principal; 2024-06-20 13:45)
PROC: 0DBN4ZZ Excision of Sigmoid Colon, Percutaneous Endoscopic Approach (ICD-10-PCS; principal; 2024-06-20 13:45)
DX: K57.20 Diverticulitis of large intestine with perforation and abscess without bleeding (principal); K65.1 Peritoneal abscess; K56.51 Intestinal adhesions [bands], with partial obstruction; I50.22 Chronic systolic (congestive) heart failure; I11.0 Hypertensive heart disease with heart failure; E03.9 Hypothyroidism, unspecified; I08.1 Rheumatic disorders of both mitral and tricuspid valves; N13.8 Other obstructive and reflux uropathy; Z92.3 Personal history of irradiation; Z95.0 Presence of cardiac pacemaker; E78.5 Hyperlipidemia, unspecified; I25.10 Atherosclerotic heart disease of native coronary artery without angina pectoris; K21.9 Gastro-esophageal reflux disease without esophagitis; E87.5 Hyperkalemia; N40.1 Benign prostatic hyperplasia with lower urinary tract symptoms; M19.90 Unspecified osteoarthritis, unspecified site; F41.9 Anxiety disorder, unspecified; M16.12 Unilateral primary osteoarthritis, left hip; M54.50 Low back pain, unspecified; R00.0 Tachycardia, unspecified; H93.19 Tinnitus, unspecified ear; Z85.72 Personal history of non-Hodgkin lymphomas; Z87.891 Personal history of nicotine dependence; Z95.2 Presence of prosthetic heart valve; Z95.5 Presence of coronary angioplasty implant and graft; Z90.81 Acquired absence of spleen; Z79.82 Long term (current) use of aspirin; Z79.890 Hormone replacement therapy; Z79.1 Long term (current) use of non-steroidal anti-inflammatories (NSAID); Z79.899 Other long term (current) drug therapy
CPT/HCPCS: 64468; 71275; 80048; 80053; 84484; 85025; 85379; 88307; 93306

== ENCOUNTER → 2024-09-08 | Outpatient (CLI) | payer MEDICARE ==
[2024-09-08 10:24] LABS: Partial Thromboplastin Time 22.5 sec (22.0-30.0); Prothrombin Time 10.6 sec (10.0-12.5)
[2024-09-08 16:22] LABS: HCT 38.9 % (39.6-50.0); HGB 12.3 g/dL (13.0-17.0); MCH 29.5 pg (27.0-32.0); MCHC 31.6 g/dL (32.0-37.0); MCV 93.3 FL (80.0-97.0); Mean Platelet Volume 12.3 FL (9.5-12.2); NRBC Per 100 WBC 0 X 10*3/uL (0.00-0.01); Platelet Count 213 X 10*3/uL (140-440); RBC 4.17 X 10*6/uL (4.40-5.60); RDW 14.2 % (11.5-14.5); WBC 9.32 X 10*3/uL (4.50-10.00)
[2024-09-08 16:33] LABS: ALT 18 U/L (10-49); AST 25 U/L (14-35); Albumin 4.1 g/dL (3.8-4.9); Albumin/Globulin Ratio 2.16 Ratio (1.60-3.17); Alkaline Phosphatase 70 U/L (41-126); Blood Urea Nitrogen 20.3 mg/dL (9.0-27.0); Calcium 9.4 mg/dL (8.7-10.3); Chloride 103 mmol/L (96-109); Globulin 1.9 g/dL (1.6-3.3); Glucose 108 mg/dL (70-110); Potassium 4.6 mmol/L (3.5-5.5); Sodium 139 mmol/L (135-145); Total Bilirubin 0.3 mg/dL (0.3-1.2)
== END | disposition home or self-care (01) ==
LOC: LABWHC1 09:10
PROVIDERS: ATTEND Orthopaedic Surgery
DX: Z01.818 Encounter for other preprocedural examination (principal); M16.12 Unilateral primary osteoarthritis, left hip; R94.31 Abnormal electrocardiogram [ECG] [EKG]; Z22.322 Carrier or suspected carrier of Methicillin resistant Staphylococcus aureus; Z95.0 Presence of cardiac pacemaker
CPT/HCPCS: 36415; 80053; 85027; 85610; 85730; 86850; 86900; 86901; 87070; 93005

== ENCOUNTER 2024-09-16 05:35 | Day surgery (SDC) | payer MEDICARE ==
[~2024-09-16 05:35] MED LIST changes: +TRANEXAMIC 1,000 MG/100ML-NACL 1,000 MG in SALINE 1 100ML.BAG IVPB PRN; -metroNIDAZOLE-NS PMX 500 MG in SALINE 1 100ML.BAG IVPB PRN
[2024-09-16] MEDS ORDERED: LIDOCAINE 1% (10MG/ML) FOR IV START INTRADERMA PRN (05:44)
[2024-09-16] MEDS: IV FLUID CONTINUATION 1,000 ML IV ONE ×2 (05:59→09:11)
[2024-09-16] MEDS: ACETAMINOPHEN TAB 500 MG TAB PO PRN (06:25)
[2024-09-16] MEDS: MELOXICAM 7.5 MG TAB PO PRN (06:26)
[2024-09-16] MEDS: ONDANSETRON 4 MG/2 ML VIAL IVP ONE (06:26)
[2024-09-16] MEDS: GABAPENTIN 300 MG CAP PO PRN (06:26)
[2024-09-16] MEDS: DEXAMETHASONE SOD PHOSPHATE 4 MG/ML 1 ML VIAL IV ONE (06:26)
[2024-09-16] MEDS: LACTATED RINGERS 1,000 ML IV SCH (06:27)
[2024-09-16] MEDS: MIDAZOLAM 2 MG/2 ML VIAL IV PRN (06:39)
[2024-09-16] MEDS ORDERED: TRANEXAMIC 1,000 MG/100ML-NACL PREMIX BAG ONE (06:58)
[2024-09-16] MEDS ORDERED: ROPIVACAINE 5 MG/ML 30 ML VIAL ONE (06:58)
[2024-09-16] MEDS ORDERED: ePHEDrine 50 MG/ML 1 ML VIAL ONE (06:58)
[2024-09-16] MEDS ORDERED: PHENYLEPHRINE-0.9% NACL SYG 1,000 MCG/10 ML SYRINGE ONE (06:58)
[2024-09-16] MEDS ORDERED: MIDAZOLAM 2 MG/2 ML VIAL ONE (06:58)
[2024-09-16] MEDS ORDERED: KETAMINE HCL IN 0.9 % NACL 50 MG/5 ML SYRINGE ONE (06:58)
[2024-09-16] MEDS ORDERED: DEXAMETHASONE SOD PHOSPHATE 4 MG/ML 1 ML VIAL ONE (06:58)
[2024-09-16] MEDS ORDERED: HYDROmorphone 0.5 MG/0.5 ML SYRINGE IVP PRN ×4 (07:00→08:41)
[2024-09-16] MEDS: ceFAZolin 1,000 MG in SODIUM CHLORIDE 0.9% 1,000 ML IRRIGATION ONE (07:00)
[2024-09-16] MEDS ORDERED: fentaNYL (PF) 50 MCG/ML 2 ML AMP IVP PRN (07:00)
[2024-09-16] MEDS: ROPIVACAINE 5 MG/ML 30 ML VIAL MISCELLANE ONE ×2 (07:25→08:08)
--- NOTE | 2024-09-16 08:12 | P.OP ---
Date of Procedure: 09/16/24 Preoperative Diagnosis: Severe osteoarthritis left hip Postoperative Diagnosis: Severe osteoarthritis left hip Procedure(s) Performed: Left total hip arthroplasty with a direct anterior approach Implants: [employer] Polarstem standard size 2 with a collar [employer] R3, 3 hole hemispherical acetabular shell, 52 mm [employer] Reflection 6.5 mm cancellus screw, 20 mm 2 [employer] R3, XLPE 20 acetabular liner [employer] Oxinium femoral head 36 mm, -3 All components were press-fit. The articulation is Oxinium on polyethylene. Anesthesia: spinal Surgeon: Yusuf Davenport Molder Punch #1: Isaura Palmer Estimated Blood Loss (ml): 300 Pathology: none sent Condition: stable Disposition: PACU Indications for Procedure: After failure of conservative treatment we discussed the surgical and nonsurgical treatment options at length. Patient wishes to proceed with a total hip arthroplasty with a direct anterior approach. Complications specific to this procedure were discussed at length, including but not limited to infection, leg length discrepancy, dislocation, nerve injury, and fracture. Covid-19 was also discussed at length with the patient, and they are aware of the current policies and procedures. The patient was given the option of delaying surgery, but they elect to proceed knowing these risks. Patient is aware of all these complications and informed consent was obtained Operative Findings: The operative findings are consistent with severe osteoarthritis of the left hip Description of Procedure: The patient was seen and evaluated in the preoperative area and the consent was reviewed. The operative site was marked with a skin marker. The patient verified the procedure and operative site. A IVANA block was placed by anesthesia in the preoperative area. The patient was then brought to the operating room and given preoperative antibiotics intravenously. 1 g of Tranexamic acid was also given intravenously. A spinal anesthetic was administered by the anesthesia department. The patient was then placed on the Ava table with the bony prominences well-padded. The hip area was then prepped with a ChloraPrep solution and draped in the usual sterile fashion. A universal timeout was then performed, which confirmed the patient's name, surgical site, ALLERGIES, and procedure being performed on the consent. Next the incision site was located at 1 cm distal and 4 cm lateral to the anterior superior iliac spine. The skin and subcutaneous tissues were sharply incised. Incision was carefully dissected down to the fascia overlying the tensor fascia carolyn muscle. This fascia was then incised in line with the muscle fibers. Care was taken to stay laterally in order to avoid injuring the lateral femoral cutaneous nerve. Next, using blunt finger dissection, the tensor fascia carolyn muscle was dissected off its investing fascia. The muscle was then carefully retracted laterally with a cobra retractor over the lateral neck of the femur. Next, the circumflex vessels were identified and cauterized using the Aquamantis device. The anterior hip capsule was then exposed. The capsule was then opened and an inverted T fashion. The retractors were then placed intracapsularly. The retractors were maintained intracapsular throughout the procedure. The proximal femur was then visualized. Fluoroscopic x-rays were then taken in order to evaluate the preoperative leg lengths. A small amount of traction was placed on the leg. The femoral neck was then osteotomized at the appropriate level above the lesser trochanter. A small wedge of bone was then removed from the remaining femoral head. Next, using a corkscrew the femoral head was removed from the acetabulum. On gross visual inspection, the femoral head had complete loss of articular cartilage and multiple periarticular osteophytes. The femoral head was then measured. Attention was then turned to the acetabulum. The acetabulum was exposed and any remaining labrum was excised. Sequential reaming of the acetabulum was performed using fluoroscopic guidance until there was a good bed of bleeding cancellus bone. When the appropriate size was reached, a trial was then placed. The position and fit of the trial was checked with fluoroscopy. The trial was then removed. Then, using fluoroscopic guidance, the final implant was impacted at 20 of anteversion and 40 of abduction, and fully seated in the acetabulum. 2 screws were then placed in the acetabulum. Again fluoroscopy was used to check position of the screws. Next, the liner was then impacted, with a 20 elevated liner located in the anterior superior quadrant. Component locking was confirmed. Attention was then directed to the femur. With the aid of the Ava table, the femur was externally rotated to approximately 130, extended, and adducted under the opposite leg. A side hook was then placed under the proximal femur, and the side hook elevator was used to elevate the proximal femur while releasing the capsule. Retractors were then placed. A capsular release was performed, as well as a release of the conjoined tendon, which afforded excellent visualization of the proximal femur. Next, a box osteotome was used to lateralize the proximal femur. A material handler 2nd shift was then used to locate the femoral canal. Sequential broaching was then performed with appropriate size which afforded excellent fixation in the proximal femur. A trial was then placed with appropriate head and neck, and the hip was gently reduced with the aid of the Ava table. Fluoroscopy was then used to check position of the components, as well as to evaluate the leg lengths and offset. The leg lengths and offset were measured as closely as possible to ensure stability of the hip. The hip was then gently dislocated and the trials were then removed. Final implants were then impacted and the hip was again reduced. Final fluoroscopic x-rays confirmed that the components were in anatomic position. The leg lengths and offset were measured and were found to coincide with the trial measurements. The hip was also taken through range of motion, and found to be stable. The hip was then copiously irrigated with antibiotic solution with pulsatile lavage. The hip was then irrigated with Irrisept solution. The soft tissues were then injected with a ropivacaine solution. A second dose of 1 g of Tranexamic acid was also given intravenously. The fascia was then closed with 2-0 strata fix suture. The subcutaneous tissue was closed with 3-0 Vicryl. The subcuticular tissue was closed with 3-0 strata fix suture. The skin was then closed with Exofin skin glue. After the glue and dried, and Optifoam silver impregnated dressing was applied. The patient was then transferred to the recovery room in stable condition. The virtual office assistant YUMIKO Mcgarry was required due to the complexity of surgery, and the need for skilled surgical technologist for positioning, draping, exposure, retraction, and closure of the wound.
--- NOTE | 2024-09-16 08:33 | XR ---
EXAMINATION TYPE: XR Hip Limited LT, FL guidance operating room DATE OF EXAM: 09/16/2024 FLUOROSCOPY Fluoroscopy time of 7 minutes 30 seconds was used during anterior left hip replacement. 2 image/s do cument/s the procedure. Total dose: 3.2 Gycm2. [facility], Workstation: [email or web address], 09/16/2024 8:30 AM
[2024-09-16] MEDS ORDERED: ONDANSETRON 4 MG/2 ML VIAL IVP PRN (08:41)
[2024-09-16] MEDS ORDERED: NALOXONE 0.4 MG/ML 1 ML VIAL IV PRN (08:41)
[2024-09-16] MEDS ORDERED: MAGNESIUM HYDROXIDE 2,400 MG/30 ML CUP PO PRN (08:41)
[2024-09-16] MEDS ORDERED: HYDROcodone/APAP 7.5-325MG 1 EACH TAB PO PRN (08:43)
--- NOTE | 2024-09-16 09:14 | XR ---
EXAMINATION TYPE: XR Hip Limited LT DATE OF EXAM: 09/16/2024 9:08 AM COMPARISON: None CLINICAL INDICATION: Male, 69 years old with history of Status post hip surgery, assess surgical alesha walter; PHH, pain TECHNIQUE: Single AP view FINDINGS: Image shows placement of left total hip arthroplasty. Acetabular cup and femoral stem components of t he prosthesis are well seated without periprosthetic fracture. Alignment grossly anatomic. Soft tissu e air related to recent operation. IMPRESSION: Uncomplicated postoperative appearance left total hip arthroplasty. [facility], Workstation: [email or web address], 09/16/2024 9:12 AM
[2024-09-16] MEDS: SODIUM CHLORIDE 0.9% 1,000 ML IV SCH (10:22)
[2024-09-16] MEDS ORDERED: ACETAMINOPHEN TAB 500 MG TAB PO PRN (12:40)
[2024-09-16] MEDS ORDERED: NITROGLYCERIN SL TABS 0.4 MG TAB SUBLINGUAL PRN (12:40)
--- NOTE | 2024-09-16 13:26 | P.ANPRN ---
Procedure Note - Anesthesia - Nerve Block Performed Left Noman Single Time Out Performed: Yes Date of Procedure: 09/16/24 Procedure Start Time: 06:39 Procedure Stop Time: 06:47 Location of Patient: PreOp Indication: Acute Post-Operative Pain, Requested by Surgeon Sedation Type: Sedate with meaningful contact maintained Preparation: Sterile Prep Position: Supine Needle Types: Pajunk Needle Gauge: 21 Ultrasound used to visualize needle placement: Yes Ultrasound used to observe medication spread: Yes Blood Aspirated: No Pain Paresthesia on Injection Noted: No Resistance on Injection: Normal Image Stored and Saved: Yes Events: Uneventful and Well Tolerated (Ropivacaine 0.5% 20 cc plus dexamethasone 4 mg)
--- NOTE | 2024-09-16 13:52 | P.CONS ---
History of Present Illness - Reason for Consult Congestive heart failure - History of Present Illness Patient admitted for left hip arthroplasty underwent successful surgery successfully. Patient has extensive medical history with a history of congestive heart failure EF of around 20 to 25% aortic valve replacement in the past. Patient received quite a bit of fluid in the OR patient is presently receiving 75 cc of normal saline which will be discontinued patient will be started back on his oral Lasix patient any orthopnea paroxysmal nocturnal dyspnea. REVIEW OF SYSTEMS: All other systems are negative except those mentioned in the HPI PHYSICAL EXAMINATION: GENERAL: The patient is alert and oriented x3, not in any acute distress. Well developed, well nourished. HEENT: Pupils are round and equally reacting to light. EOMI. No scleral icterus. No conjunctival pallor. Normocephalic, atraumatic. No pharyngeal erythema. No thyromegaly. CARDIOVASCULAR: S1 and S2 present. No murmurs, rubs, or gallops. PULMONARY: Chest is clear to auscultation, no wheezing or crackles. ABDOMEN: Soft, nontender, nondistended, normoactive bowel sounds. No palpable organomegaly. MUSCULOSKELETAL: No joint swelling or deformity. EXTREMITIES: No cyanosis, clubbing, mild bilateral lower extremity edema NEUROLOGICAL: Gross neurological examination did not reveal any focal deficits. SKIN: No rashes. Assessment and plan -Left hip arthroplasty pain management as per primary service - congestive heart failure chronic systolic function EF of around 20 to 25% patient may be in mild acute exacerbation does have mild edema bilaterally although patient denying orthopnea paroxysmal nocturnal dyspnea will obtain a chest x-ray, discontinue IV fluids patient restarted back on oral Lasix. 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 - Stenosis status post attic valve placement - Hyperlipidemia - Hypertension - Hypothyroidism - Plan prostatic hypertrophy For above-mentioned chronic medical problems reviewed patient was resumed on appropriate home medications DVT prophylaxis: Past Medical History Past Medical History: Coronary Artery Disease (CAD), Cancer, Hyperlipidemia, Hypertension, Prostate Disorder, Thyroid Disorder Additional Past Medical History / Comment(s): HX OF LYMPHOMA 1984, radiation tx 1984, STATES BOWEL OBSTRUCTION X3, tinnitus, BPH History of Any Multi-Drug Resistant Organisms: None Reported Past Surgical History: Bowel Resection, Heart Catheterization With Stent, Joint Replacement, Pacemaker Additional Past Surgical History / Comment(s): LEFT AXILLARY LYMPH NODES REMOVED, SPLENECTOMY, PARTIAL LIVER REMOVAL, aortic valve replacement (2023) , esau cataract removal,. Sigmoid colectomy, lower anterior resection, lysis of ad hesions on 06/20. TLH Past Anesthesia/Blood Transfusion Reactions: No Reported Reaction Date of Last Stent Placement:: 2014 Type of Cardiac Device: Permanent Pacemaker Device Placement Date:: 11/2023 Past Psychological History: Anxiety Smoking Status: Former smoker Past Alcohol Use History: Occasional Additional Past Alcohol Use History / Comment(s): quit smoking 1979, smoked about 10 yrs 1ppd Past Drug Use History: Marijuana Additional Drug Use History / Comment(s): instructed to hold 24 hrs prior to procedure - Past Family History Mother Family Medical History: Cancer Additional Family Medical History / Comment(s): metastatic cancer. maternal grandfather - colon cancer Medications and Allergies Home Medications Medication Instructions Recorded Confirmed Type Aspirin 81 mg PO HS 04/30/14 09/16/24 History Multivitamins, Thera [Multivitamin 1 tab PO DAILY 04/30/14 09/16/24 History (formulary)] Cholecalciferol (Vitamin D3) 1,000 unit PO DAILY 02/10/19 09/16/24 History [Vitamin D3] Levothyroxine Sodium [Synthroid] 150 mcg PO DAILY 02/10/19 09/16/24 History Meloxicam [Mobic] 15 mg PO DAILY 02/10/19 09/16/24 History [place]-3 Fatty Acids/Fish Oil [Fish 1 each PO DAILY 02/10/19 09/16/24 History Oil 1,000 mg Softgel] ALPRAZolam [Xanax] 0.25 mg PO HS PRN 05/19/24 09/16/24 History Citalopram Hydrobromide 10 mg PO DAILY 05/19/24 09/16/24 History [Citalopram HBr] Ezetimibe [Zetia] 10 mg PO HS 05/19/24 09/16/24 History Furosemide [Lasix] 20 mg PO DAILY 05/19/24 09/16/24 History Magnesium (Unk) 250 mg PO DAILY 05/19/24 09/16/24 History Potassium Chloride [K-Tab ER] 20 meq PO DAILY 05/19/24 09/16/24 History Rosuvastatin Calcium 40 mg PO HS 05/19/24 09/16/24 History Super C (Unk) 1 dose PO DAILY 05/19/24 09/16/24 History Tamsulosin [Flomax] 0.4 mg PO BID 05/19/24 09/16/24 History traMADol HCL 50 mg PO Q6H 05/19/24 09/16/24 History Acetaminophen Tab [Tylenol Tab] 1,000 mg PO Q6HR PRN #30 tablet 06/20/24 09/16/24 Rx Metoprolol Succinate (ER) [Toprol 50 mg PO DAILY #30 tab 06/24/24 09/16/24 Rx XL] Amoxicillin 500 mg PO DIRECTED PRN 09/10/24 09/16/24 History Nitroglycerin 0.4 mg SL DIRECTED PRN 09/10/24 09/16/24 History Aspirin 325 mg PO BID #60 tab 09/16/24 Rx HYDROcodone/APAP 7.5-325MG [[place] 1 - 2 tab PO Q6H PRN #32 tab 09/16/24 Rx 7.5-325] Sennosides [Senokot] 2 tab PO DAILY PRN #60 tablet 09/16/24 Rx Allergies Allergy/AdvReac Type Severity Reaction Status Date / Time No Known Allergies Allergy Verified 09/16/24 06:05 Physical Exam Vitals: Vital Signs Temp Pulse Pulse Resp BP BP BP 09/16/24 11:26 81 103/61 09/16/24 11:21 79 103/61 09/16/24 11:06 78 98/60 09/16/24 10:52 85 95/57 09/16/24 10:51 91 09/16/24 10:36 86 98/60 09/16/24 10:00 81 17 89/56 09/16/24 09:45 84 15 90/56 09/16/24 09:30 87 17 90/58 09/16/24 09:15 80 16 93/56 09/16/24 09:00 80 15 89/47 09/16/24 08:45 80 13 85/55 09/16/24 08:34 98.3 F 84 10 L 81/51 09/16/24 06:54 75 14 104/62 09/16/24 06:44 78 12 107/62 09/16/24 05:59 97.1 F L 78 14 120/66 Pulse Ox 09/16/24 11:26 97 09/16/24 11:21 96 09/16/24 11:06 97 09/16/24 10:52 97 09/16/24 10:51 85 L 09/16/24 10:36 96 09/16/24 10:00 97 09/16/24 09:45 97 09/16/24 09:30 95 09/16/24 09:15 96 09/16/24 09:00 97 09/16/24 08:45 97 09/16/24 08:34 94 L 09/16/24 06:54 97 09/16/24 06:44 97 09/16/24 05:59 97 Intake and Output 09/15/24 09/16/24 09/16/24 22:59 06:59 14:59 Intake Total 100 1051 Output Total 300 Balance 100 751 Intake: IV 100 1051 Output: Estimated Blood Loss 300 Other: Weight 96.8 kg 96.8 kg
--- NOTE | 2024-09-16 15:31 | XR ---
EXAMINATION TYPE: XR chest 1V portable DATE OF EXAM: 09/16/2024 3:26 PM COMPARISON: None CLINICAL INDICATION: Male, 69 years old with history of EF 25%, shortness of breath FINDINGS: Left anterior chest wall pacemaker generator with right atrial and right ventricular leads. Endovascu lar aortic valve replacement is present. Heart upper limits of normal in size. Mild interstitial prom inence without consolidation or pleural effusion. IMPRESSION: Mild interstitial prominence. Correlate for possible mild pulmonary vascular congestion. [facility], , 09/16/2024 3:29 PM
[2024-09-16] MEDS: HYDROcodone/APAP 7.5-325MG 1 EACH TAB PO PRN (18:59)
[2024-09-16] MEDS: ATORVASTATIN 80 MG TAB PO SCH (21:28)
[2024-09-16] MEDS: EZETIMIBE 10 MG TAB PO SCH (21:28)
[2024-09-16] MEDS: SENNOSIDES-DOCUSATE SODIUM 1 EACH TAB PO SCH (21:28)
[2024-09-16] MEDS: ASPIRIN 325 MG TAB PO SCH (21:28)
[2024-09-16] MEDS: TAMSULOSIN 0.4 MG CAP.ER.24H PO SCH (21:28)
[2024-09-16] MEDS ORDERED: ALPRAZolam 0.25 MG TAB PO PRN (21:36)
[2024-09-17] MEDS: LEVOTHYROXINE 75 MCG TAB PO SCH (06:26)
[2024-09-17 08:07] LABS: HCT 35.2 % (39.6-50.0); HGB 11.3 g/dL (13.0-17.0); MCH 29.4 pg (27.0-32.0); MCHC 32.1 g/dL (32.0-37.0); MCV 91.7 FL (80.0-97.0); Mean Platelet Volume 12.2 FL (9.5-12.2); NRBC Per 100 WBC 0 X 10*3/uL (0.00-0.01); Platelet Count 192 X 10*3/uL (140-440); RBC 3.84 X 10*6/uL (4.40-5.60); WBC 16.72 X 10*3/uL (4.50-10.00)
--- NOTE | 2024-09-17 08:19 | P.DS ---
Providers Expected date of discharge: 09/17/24 Attending physician: Yusuf Davenport Consults: 09/16/24 08:41 Consult Physician Routine Consulting Provider: Harmeet Fry Consult Reason/Comments: medical management Do you want consulting provider notified?: Yes Primary care physician: Salazar Levine - Discharge Diagnosis(es) (1) Osteoarthritis of left hip Current Visit: Yes Status: Acute (2) S/P total hip arthroplasty Current Visit: Yes Status: Acute Hospital Course: This is a 69-year-old male with known history of degenerative arthritis of the left hip. The patient presented for evaluation as an outpatient. After discussion and consideration patient elects to proceed with total hip arthroplasty. The patient is seen preoperatively by Dr. Davenport and medically cleared for surgery by their primary care physician. Patient is admitted to [facility] on 09/17/2024 for total hip arthroplasty. The procedure is performed without complication or sequelae. The patient is doing well postoperatively. Labs and vital signs are stable on day of discharge. On day of discharge patient's hip incision is healing well. There is minimal erythema. There is no drainage noted at this time. There is minimal soft tissue swelling to the hip and thigh. Patient has full foot and ankle motion without difficulty or pain. Calf is soft and nontender to palpation. Neurovascular status to the left lower extremity is intact. Patient is discharged home in good condition. Please see med rec for accurate list of home medications. Plan - Discharge Summary Discharge Rx Participant: No New Discharge Prescriptions: New Sennosides [Senokot] 2 tab PO DAILY PRN #60 tablet PRN Reason: Constipation Aspirin 325 mg PO BID #60 tab HYDROcodone/APAP 7.5-325MG [[place]apoint 7.5-325] 1 - 2 tab PO Q6H PRN #32 tab PRN Reason: Pain No Action Multivitamins, Thera [Multivitamin (formulary)] 1 tab PO DAILY Aspirin 81 mg PO HS Levothyroxine Sodium [Synthroid] 150 mcg PO DAILY Meloxicam [Mobic] 15 mg PO DAILY [place]-3 Fatty Acids/Fish Oil [Fish Oil 1,000 mg Softgel] 1 each PO DAILY Cholecalciferol (Vitamin D3) [Vitamin D3] 1,000 unit PO DAILY ALPRAZolam [Xanax] 0.25 mg PO HS PRN PRN Reason: Insomnia Super C (Unk) 1 dose PO DAILY Potassium Chloride [K-Tab ER] 20 meq PO DAILY Magnesium (Unk) 250 mg PO DAILY Furosemide [Lasix] 20 mg PO DAILY Metoprolol Succinate (ER) [Toprol XL] 50 mg PO DAILY #30 tab Ezetimibe [Zetia] 10 mg PO HS traMADol HCL 50 mg PO Q6H Tamsulosin [Flomax] 0.4 mg PO BID Rosuvastatin Calcium 40 mg PO HS Citalopram Hydrobromide [Citalopram HBr] 10 mg PO DAILY Acetaminophen Tab [Tylenol Tab] 1,000 mg PO Q6HR PRN #30 tablet PRN Reason: Pain Amoxicillin 500 mg PO DIRECTED PRN PRN Reason: dental procedures Nitroglycerin 0.4 mg SL DIRECTED PRN PRN Reason: Chest Pain Discharge Medication List Aspirin 81 mg PO HS 04/30/14 [History] Multivitamins, Thera [Multivitamin (formulary)] 1 tab PO DAILY 04/30/14 [History] Cholecalciferol (Vitamin D3) [Vitamin D3] 1,000 unit PO DAILY 02/10/19 [History] Levothyroxine Sodium [Synthroid] 150 mcg PO DAILY 02/10/19 [History] Meloxicam [Mobic] 15 mg PO DAILY 02/10/19 [History] [place]-3 Fatty Acids/Fish Oil [Fish Oil 1,000 mg Softgel] 1 each PO DAILY 02/10/19 [History] ALPRAZolam [Xanax] 0.25 mg PO HS PRN 05/19/24 [History] Citalopram Hydrobromide [Citalopram HBr] 10 mg PO DAILY 05/19/24 [History] Ezetimibe [Zetia] 10 mg PO HS 05/19/24 [History] Furosemide [Lasix] 20 mg PO DAILY 05/19/24 [History] Magnesium (Unk) 250 mg PO DAILY 05/19/24 [History] Potassium Chloride [K-Tab ER] 20 meq PO DAILY 05/19/24 [History] Rosuvastatin Calcium 40 mg PO HS 05/19/24 [History] Super C (Unk) 1 dose PO DAILY 05/19/24 [History] Tamsulosin [Flomax] 0.4 mg PO BID 05/19/24 [History] traMADol HCL 50 mg PO Q6H 05/19/24 [History] Acetaminophen Tab [Tylenol Tab] 1,000 mg PO Q6HR PRN #30 tablet 06/20/24 [Rx] Metoprolol Succinate (ER) [Toprol XL] 50 mg PO DAILY #30 tab 06/24/24 [Rx] Amoxicillin 500 mg PO DIRECTED PRN 09/10/24 [History] Nitroglycerin 0.4 mg SL DIRECTED PRN 09/10/24 [History] Aspirin 325 mg PO BID #60 tab 09/16/24 [Rx] HYDROcodone/APAP 7.5-325MG [[place] 7.5-325] 1 - 2 tab PO Q6H PRN #32 tab 09/16/24 [Rx] Sennosides [Senokot] 2 tab PO DAILY PRN #60 tablet 09/16/24 [Rx] Follow up Appointment(s)/Referral(s): Yusuf Davenport DO [Doctor of Osteopathic Medicine] - 2 Weeks Activity/Diet/Wound Care/Special Instructions: Weightbearing as tolerated with walker. Leave dressing intact. Dressing may be removed by home care nurse or by patient in 7 days. Then change dressing twice daily until follow up. May shower with initial dressing intact and after removal. If dressing become saturated, please remove. Please take aspirin 325mg twice daily for 30 days to prevent blood clots. Recommend use of compression stockings daily until follow up to help prevent swelling and blood clots. May remove at night before sleeping. Please follow-up with [facility] in 2 weeks and call with any questions or concerns, . Discharge Disposition: HOME WITH HOME HEALTH SERVICES
[2024-09-17] MEDS: FUROSEMIDE 20 MG TAB PO SCH (08:35)
[2024-09-17] MEDS: CITALOPRAM HYDROBROMIDE 10 MG TAB PO SCH (08:35)
[2024-09-17] MEDS: METOPROLOL SUCCINATE (ER) 50 MG TAB.ER.24H PO SCH (08:36)
[2024-09-17 08:54] VITALS: BP 119/68; PULSE 99; RESP 16; TEMP 98.7
[2024-09-17 09:22] LABS: Basophils # (A) 0.02 X 10*3/uL (0.00-0.10); Basophils % (A) 0.1 %; Eosinophils # (A) 0.01 X 10*3/uL (0.04-0.35); Eosinophils % (A) 0.1 %; Lymphocytes # (A) 2.74 X 10*3/uL (0.90-5.00); Lymphocytes % (A) 16.4 %; Monocytes # (A) 1.73 X 10*3/uL (0.20-1.00); Monocytes % (A) 10.3 %; Neutrophils # (A) 12.14 X 10*3/uL (1.80-7.70); Neutrophils % (A) 72.6 %
--- NOTE | 2024-09-17 14:01 | P.PN ---
Subjective Progress Note Date: 09/17/24 Patient admitted for left hip arthroplasty underwent successful surgery successfully. Patient has extensive medical history with a history of congestive heart failure EF of around 20 to 25% aortic valve replacement in the past. Patient received quite a bit of fluid in the OR patient is presently receiving 75 cc of normal saline which will be discontinued patient will be started back on his oral Lasix patient any orthopnea paroxysmal nocturnal dyspnea. 09/17/2024 Was evaluated in follow-up on the medical floor he is postoperative day #1 left total hip arthroplasty. White blood cell count elevated which can be expected postoperatively. Patient did have a chest x-ray completed yesterday afternoon which reveals mild pulmonary vascular congestion. He is receiving Lasix daily and currently not receiving any IV hydration. He is 97% on room air. His lungs are clear. He was having issues with urinary retention and has soto catheter in place. He had issues with urinary retention after his orthopedic surgery in May. He was discharged at that time with a soto catheter and saw his ur ologist in the office and would like to do the same this time. He is currently pending PT OT evaluation and discharge planning. Review of Systems Constitutional: Denied any fatigue denied any fever. Cardio vascular: denied any chest pain, palpitations Gastrointestinal: denied any nausea, vomiting, diarrhea Pulmonary: Denied any shortness of breath cough Neurologic denied any new focal deficits All inpatient medications were reviewed and appropriate changes in these medications as dictated in the interval history and assessment and plan. PHYSICAL EXAMINATION: GENERAL: The patient is alert and oriented x3, not in any acute distress. Well developed, well nourished. HEENT: Pupils are round and equally reacting to light. EOMI. No scleral icterus. No conjunctival pallor. Normocephalic, atraumatic. No pharyngeal erythema. No thyromegaly. CARDIOVASCULAR: S1 and S2 present. No murmurs, rubs, or gallops. PULMONARY: Chest is clear to auscultation, no wheezing or crackles. ABDOMEN: Soft, nontender, nondistended, normoactive bowel sounds. No palpable organomegaly. MUSCULOSKELETAL: No joint swelling or deformity. EXTREMITIES: No cyanosis, clubbing, mild bilateral lower extremity edema NEUROLOGICAL: Gross neurological examination did not reveal any focal deficits. SKIN: No rashes. Assessment and plan - Left hip arthroplasty pain management as per primary service - Congestive heart failure chronic systolic function EF of around 20 to 25% patient may be in mild acute exacerbation does have mild edema bilaterally although patient denying orthopnea paroxysmal nocturnal dyspnea will obtain a chest x-ray, discontinue IV fluids patient restarted back on oral Lasix. Patient appears to have ischemically cardiomyopathy - Reactive leukocytosis - Post operative urinary retention requiring IDC can be expected - Aortic stenosis status post aortic valve placement - Hyperlipidemia - Hypertension - Hypothyroidism - Benign prostatic hypertrophy For above-mentioned chronic medical problems reviewed patient was resumed on appropriate home medications DVT prophylaxis: Aspirin 325 mg twice daily post procedure as per primary Patient has been maintained on aspirin 81 mg daily and will hold for the next 30 days while he is on aspirin 325 mg twice daily for the next 30 days. He will discharge with the indwelling soto catheter and follow up with urology in the office. Recommended to continue with the incentive spirometer 10 x an hour while awake. The impression and plan of care has been dictated by Nahomi Yin Nurse Practitioner as directed. Dr. Jose D MD I have performed a history and physical examination and medical decision making of this patient, discussed the same with the dictator, and agree with the dictators assessment and plan as written, documented as a scribe. Based on total visit time, I have performed more than 50% of this visit. Objective - Vital Signs Vital signs: Vital Signs Temp 98.7 F 09/17/24 08:54 Pulse 99 09/17/24 08:54 Resp 16 09/17/24 08:54 BP 119/68 09/17/24 08:54 Pulse Ox 97 09/17/24 08:54 FiO2 Intake & Output 09/16/24 09/17/24 09/17/24 18:59 06:59 18:59 Intake Total 1051 Output Total 1830 1650 Balance -779 -1650 Weight 96.8 kg Intake: IV 1051 Output: Urine 1530 1650 Uretheral (Soto) 1530 1050 Estimated Blood Loss 300 Other: Voiding Method Urinal Indwelling Catheter - Labs CBC & Chem 7: 09/17/24 03:38 Labs: Abnormal Lab Results - Last 24 Hours (Table) 09/17/24 Range/Units 03:38 WBC 16.72 H (4.50-10.00) X 10*3/uL RBC 3.84 L (4.40-5.60) X 10*6/uL Hgb 11.3 L (13.0-17.0) g/dL Hct 35.2 L (39.6-50.0) % Immature Gran # 0.08 H (0.00-0.04) X 10*3/uL Neutrophils # 12.14 H (1.80-7.70) X 10*3/uL Monocytes # 1.73 H (0.20-1.00) X 10*3/uL Eosinophils # 0.01 L (0.04-0.35) X 10*3/uL Assessment and Plan Time with Patient: Less than 30
== END 2024-09-17 12:33 | disposition home health service (06) ==
LOC: OR 05:35 → 4SSUR 08:28 → OR 09-17 12:33
PROVIDERS: ATTEND Orthopaedic Surgery
DX: M16.12 Unilateral primary osteoarthritis, left hip (principal); G89.18 Other acute postprocedural pain; D72.829 Elevated white blood cell count, unspecified; N40.1 Benign prostatic hyperplasia with lower urinary tract symptoms; R33.8 Other retention of urine; I11.0 Hypertensive heart disease with heart failure; I50.22 Chronic systolic (congestive) heart failure; E78.00 Pure hypercholesterolemia, unspecified; E03.9 Hypothyroidism, unspecified; I25.10 Atherosclerotic heart disease of native coronary artery without angina pectoris; I35.0 Nonrheumatic aortic (valve) stenosis; Z79.899 Other long term (current) drug therapy; Z79.82 Long term (current) use of aspirin; Z98.890 Other specified postprocedural states; Z90.49 Acquired absence of other specified parts of digestive tract; Z95.2 Presence of prosthetic heart valve; Z87.891 Personal history of nicotine dependence; Z95.0 Presence of cardiac pacemaker; Z98.41 Cataract extraction status, right eye; Z98.42 Cataract extraction status, left eye; Z85.72 Personal history of non-Hodgkin lymphomas; Z92.3 Personal history of irradiation; Z79.890 Hormone replacement therapy; Z79.1 Long term (current) use of non-steroidal anti-inflammatories (NSAID)
CPT/HCPCS: 27130; 97161; 97166; 64473; 85025; 73501; 71045; C1776; J2250; J1100; J0690 ×3; J2405; J2795